=== PATIENT | female | born 1975 | race Caucasian/White ===

== ENCOUNTER 2017-02-16 21:54 | Emergency (ER) | payer OTHER ==
[~2017-02-16] VITALS: Ht 160 cm; Wt 81.6 kg
[~2017-02-16 21:54] MED LIST: ACHD5005 PO; ALPR1T; ALPR1T PO; ALPR2TAB2 PO; ALPR2TAB37 PO; ASPI-480 PO; BACL10TA PO; BIRTH CONTROL PILLS; CARV12.53 PO; CARV6.25; CEPH500C PO; CLIN150C17 PO; CLIN300C11 PO; CLIN300C3 PO; CLON1TAB3 PO; CPR500T; CPR500T PO; CYCL10TA9 PO; ESCT10T PO; ESTR2TAB; GABA300C PO; GABA600T2 PO; HCT25T; HYDR-1231 PO; HYDR-3720 PO; HYDR1TAB PO; HYDR25CA92 GT; HYDR50TA76 PO; HYDROCODONE; IBP200T PO; IBP800T PO; LSNP10T PO; LUNESTA; MAXALT; MORP15TA8 PO; MORP60TA39 PO; NAPR500T PO; ONDA-42 SL; OXYC-197 PO; OXYC-202 PO; PRD10T PO; PRD20T PO; QTP25T PO; QUET100T PO; QUET300T2 PO; QUET50TA PO; SPRN25T; SULF-222 PO; TRAM-21 PO; TRAM50TA2 PO; TRAZ100T92 PO; VILA20TA PO; [UNRECOGNIZED DRUG - CODE] PO; [UNRECOGNIZED DRUG - OTHER]
--- NOTE | 2017-02-16 22:44 | ED Cough/URI ---
General Chief Complaint: Cough/Cold/Flu Symptoms Stated Complaint: COUGH/SORE THROAT Nursing Triage Note: PERSISTANT COUGH X4DAYS Source: patient Exam Limitations: no limitations History of Present Illness Time seen by provider: 22:43 Allergies and Home Medications Allergies Coded Allergies: prochlorperazine (Unverified Allergy, Mild, RASH, 08/07/06) codeine (Unverified Allergy, Unknown, PATIENT HAS RECEIVED MORPHINE & HYDROCODONE, 06/02/15) propoxyphene (Unverified Adverse Reaction, Mild, NAUSEA, 01/25/08) Home Medications Gabapentin 600 Mg Tablet, 600 MG PO TID, (Reported) Hydroxyzine HCl 50 Mg Tablet, 50 MG PO TID PRN for ANXIETY, (Reported) LAST FILLED #90 04-12-15 Naproxen 500 Mg Tablet, 500 MG PO BID PRN for PAIN, #30 Ref 0 Prescribed by: DAVID PRADAHN on 11/25/15 1427 Quetiapine Fumarate 300 Mg Tablet, 300 MG PO HS, (Reported) HAS NOT STARTED YET Trazodone HCl 100 Mg Tablet, 50-100 MG PO HS, (Reported) Past Ubspaga-Sjdyvx-Gvwirm Hx Patient Social History Alcohol Use: Denies Use 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) Smoking Status: Current Everyday Smoker Type Used: Cigarettes 2nd Hand Smoke Exposure: Yes Recent Foreign Travel: No Contact w/Someone Who Travel: No Recent Infectious Disease Expo: No Recent Hopitalizations: No Immunizations Up To Date Tetanus Booster (TDap): Less than 5yrs Seasonal Allergies Seasonal Allergies: No Surgeries HX Surgeries: Yes (D&C, Bartholin gland cyst marsubialization, ERCP,carpel tunnel, ankle surg) Surgeries: Section, Hysterectomy, Orthopedic, 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 Respiratory Hx Respiratory Disorders: Yes Respiratory Disorders: Chronic Bronchitis Cardiovascular Hx Cardiac Disorders: Yes (tachycardia) Cardiac Disorders: Hypertension, Syncope Neurological Hx Neurological Disorders: Yes Neurological Disorders: Headaches /Migraines, Neuropathy Reproductive System : No Hx Reproductive Disorders: No Sexually Transmitted Disease: No Female Reproductive Disorders: Polycystic Ovarian Dis 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, 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 Genitourinary Hx Genitourinary Disorders: No Gastrointestinal Hx Gastrointestinal Disorders: Yes (fatty liver dz) Gastrointestinal Disorders: Liver Disease/Jaundice Musculoskeletal Hx Musculoskeletal Disorders: Yes Musculoskeletal Disorders: Chronic Back Pain Endocrine Hx Endocrine Disorders: Yes (not on meds for hypothyroid) Endocrine Disorders: Hypothyroidsim HEENT HX ENT Disorders: No Loss of Vision: Denies Hearing Impairment: Denies Cancer Hx Cancer: No Psychosocial Hx Psychiatric Problems: Yes Behavioral Health Disorders: Anxiety, Depression Integumentary HX Skin/Integumentary Disorder: No Blood Transfusions Hx Blood Disorders: No Family Medical History Significant Family History: Heart Disease, Cancer, Diabetes Physical Exam Vital Signs Vital Sign - Last 12Hours 02/16/17 22:20 Temp 97.5 Pulse 97 Resp 18 B/P (MAP) 126/97 Pulse Ox 99 O2 Delivery Room Air Capillary Refill : Less Than 3 Seconds Progress/Results/Core Measures Results/Orders My Orders Orders - DAVID PRADHAN Ketorolac Injection (Toradol Injection) (02/16/17 22:53) Benzonatate Capsule (Tessalon Perles) (02/16/17 23:00) Cephalexin Capsule (Keflex Capsule) (02/16/17 23:00) Vital Signs/I&O Vital Sign - Last 12Hours 02/16/17 02/16/17 22:20 22:20 Temp 97.5 Pulse 97 Resp 18 B/P (MAP) 126/97 Pulse Ox 99 O2 Delivery Room Air Room Air Blood Pressure Mean: 107 Departure Impression Impression: Primary Impression: Bronchitis Disposition: 01 HOME, SELF-CARE Condition: Improved Departure-Patient Inst. Decision time for Depature: 22:56 Referrals: [facility] (PCP/Family) Primary Care Physician Patient Instructions: Acute Bronchitis, Adult (DC) Add. Discharge Instructions: All discharge instructions reviewed with patient and/or family. Voiced understanding. Medications as instructed. Tylenol Extra Strength over-the- counter as directed for pain or fever. Cool humidifier. Afrin nasal spray and saline nasal spray [id number] as needed for nasal congestion. Mucinex [id number] as needed. Follow-up with your family practitioner for recheck if needed. Return to the emergency department for worsened symptoms or any other concerns. Scripts Benzonatate (Tessalon Perle) 100 Mg Capsule 1-2 CAP PO Q8H Y for COUGH, #30 CAP 1 Refill Prov: DAVID PRADHAN 02/16/17 Promethazine HCl (Promethazine Tablet) 25 Mg Tablet 25 MG PO Q6H Y for NAUSEA/VOMITING, #10 TAB 0 Refills Prov: DAVID PRADHAN 02/16/17 Prednisone (Prednisone) 20 Mg Tab 40 MG PO DAILY, #10 TAB 0 Refills Prov: DAVID PRADHAN 02/16/17 Albuterol Sulfate (Albuterol Sulfate) 2.5 Mg/3 Ml Vial.neb 2.5 MG IH Q4H Y for SHORTNESS OF BREATH, #28 EA 0 Refills Prov: DAVID PRADHAN 02/16/17 Cephalexin (Cephalexin) 500 Mg Capsule 500 MG PO TID, #21 CAP 0 Refills Prov: DAVID PRADHAN 02/16/17 DAVID PRADHAN February 16, 2017 22:44
[2017-02-16] MEDS ORDERED: KETOROLAC 60 MG/2 ML VIAL IM STA (22:53)
[2017-02-16] MEDS ORDERED: BENZONATATE 100 MG (TESSALON) CAPSULE PO ONE (23:00)
[2017-02-16] MEDS ORDERED: CEPHALEXIN 250 MG (KEFLEX) CAP PO ONE (23:00)
[2017-02-16] MEDS ORDERED: PRD20T PO (23:01)
[2017-02-16] MEDS ORDERED: CEPH500C PO (23:01)
[2017-02-16] MEDS ORDERED: PROM25TA14 PO (23:01)
[2017-02-16] MEDS ORDERED: BENZ-13 PO (23:01)
[2017-02-16] MEDS ORDERED: ALBU2.5V4 IH (23:01)
[2017-02-16 23:09] VITALS: BP 126/97
== END 2017-02-16 23:09 | disposition home or self-care (01) ==
LOC: EDUNIT# 21:54 → ER 21:56
DX: J40 Bronchitis, not specified as acute or chronic (principal); I10 Essential (primary) hypertension; F17.210 Nicotine dependence, cigarettes, uncomplicated
CPT/HCPCS: 99282

== ENCOUNTER 2017-04-14 01:21 | Emergency (ER) | payer SELFPAY ==
[~2017-04-14] VITALS: Ht 160 cm; Wt 75.3 kg
[~2017-04-14 01:21] MED LIST changes: +ALBU2.5V4 IH; +BENZ-13 PO; +PROM25TA14 PO
--- NOTE | 2017-04-14 03:45 | ED Integumentary General ---
General Chief Complaint: Allergic Reaction Stated Complaint: POSS ALLERGIC RXN Source: patient Exam Limitations: no limitations History of Present Illness Time seen by provider: 03:36 Initial Comments Patient presents to ER by private conveyance with chief complaint of itching rash that has progressively worsened over the last several days. She is recently started new meds to include metoprolol and Haldol. She is been driving her around since he has seizure disorder and she's noticed that the rash is worse on her left forearm and neck than the right. She has been using Desitin as well as alcohol on the skin and taking Benadryl for the itching. She has also tried some osyk-hui-ehcscii hydrocortisone cream. She is not having any known exposures to new soaps detergents poison luis angel, new metals or other irritants. She does not have any shortness of breath or stridor. Allergies and Home Medications Allergies Coded Allergies: prochlorperazine (Unverified Allergy, Mild, RASH, 08/07/06) codeine (Unverified Allergy, Unknown, PATIENT HAS RECEIVED MORPHINE & HYDROCODONE, 06/02/15) propoxyphene (Unverified Adverse Reaction, Mild, NAUSEA, 01/25/08) Home Medications Albuterol Sulfate 2.5 Mg/3 Ml Vial.neb, 2.5 MG IH Q4H PRN for SHORTNESS OF BREATH, #28 Ref 0 Prescribed by: DAVID PRADHAN on 02/16/172300 Benzonatate 100 Mg Capsule, 1-2 CAP PO Q8H PRN for COUGH, #30 Ref 1 Prescribed by: DAVID PRADHAN on 02/16/172300 Cephalexin 500 Mg Capsule, 500 MG PO TID, #21 Ref 0 Prescribed by: DAVID PRADHAN on 02/16/172300 Gabapentin 600 Mg Tablet, 600 MG PO TID, (Reported) Hydroxyzine HCl 50 Mg Tablet, 50 MG PO TID PRN for ANXIETY, (Reported) LAST FILLED #90 04-12-15 Naproxen 500 Mg Tablet, 500 MG PO BID PRN for PAIN, #30 Ref 0 Prescribed by: DAVID PRADHAN on 11/25/15 1427 Prednisone 20 Mg Tab, 40 MG PO DAILY, #10 Ref 0 Prescribed by: DAVID PRADHAN on 02/16/172300 Promethazine HCl 25 Mg Tablet, 25 MG PO Q6H PRN for NAUSEA/VOMITING, #10 Ref 0 Prescribed by: DAVID PRADHAN on 02/16/17 2301 Quetiapine Fumarate 300 Mg Tablet, 300 MG PO HS, (Reported) HAS NOT STARTED YET Trazodone HCl 100 Mg Tablet, 50-100 MG PO HS, (Reported) Constitutional: No chills, No fever Respiratory: No cough, No short of breath Cardiovascular: No chest pain, No palpitations Gastrointestinal: No diarrhea, No nausea, No vomiting Genitourinary: No discharge, No dysuria Skin: see HPI, pruritus, rash Past Npqqdla-Yeewyx-Oiegrf Hx Patient Social History Alcohol Use: Denies Use Recreational Drug Use: No (LOTS OF PAIN MEDICATION USAGE) Type Used: Cigarettes 2nd Hand Smoke Exposure: Yes Recent Foreign Travel: No Contact w/Someone Who Travel: No Recent Infectious Disease Expo: No Recent Hopitalizations: No Immunizations Up To Date Tetanus Booster (TDap): Less than 5yrs Seasonal Allergies Seasonal Allergies: No Surgeries HX Surgeries: Yes (D&C, Bartholin gland cyst marsubialization, ERCP,carpel tunnel, ankle surg) Surgeries: Section, Hysterectomy, Orthopedic, 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 Respiratory Hx Respiratory Disorders: Yes Respiratory Disorders: Chronic Bronchitis Cardiovascular Hx Cardiac Disorders: Yes (tachycardia) Cardiac Disorders: Hypertension, Syncope Neurological Hx Neurological Disorders: Yes Neurological Disorders: Headaches /Migraines, Neuropathy Reproductive System Hx Reproductive Disorders: No Sexually Transmitted Disease: No Female Reproductive Disorders: Polycystic Ovarian Dis 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, 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 Genitourinary Hx Genitourinary Disorders: No Gastrointestinal Hx Gastrointestinal Disorders: Yes (fatty liver dz) Gastrointestinal Disorders: Liver Disease/Jaundice Musculoskeletal Hx Musculoskeletal Disorders: Yes Musculoskeletal Disorders: Chronic Back Pain Endocrine Hx Endocrine Disorders: Yes (not on meds for hypothyroid) Endocrine Disorders: Hypothyroidsim HEENT HX ENT Disorders: No Loss of Vision: Denies Hearing Impairment: Denies Cancer Hx Cancer: No Psychosocial Hx Psychiatric Problems: Yes Behavioral Health Disorders: Anxiety, Depression Integumentary HX Skin/Integumentary Disorder: No Blood Transfusions Hx Blood Disorders: No Family Medical History Significant Family History: Heart Disease, Cancer, Diabetes Physical Exam Vital Signs Vital Sign - Last 12Hours 04/14/17 02:13 Temp 97.7 Pulse 95 Resp 22 Pulse Ox 98 O2 Delivery Room Air Capillary Refill : Less Than 3 Seconds General Appearance: WD/WN, no apparent distress HEENT: PERRL/EOMI, pharynx normal Cardiovascular: normal peripheral pulses, no edema Respiratory: lungs clear, normal breath sounds Neurologic/Psychiatric: alert, oriented x 3 Skin: other (erythematous papular without bullae with excoriations especially concentrated on the sun exposed dorsum of the left forearm and humerus. Scant on the neck and little on the right side as well.) Progress/Results/Core Measures Results/Orders Vital Signs/I&O Vital Sign - Last 12Hours 04/14/17 02:13 Temp 97.7 Pulse 95 Resp 22 B/P (MAP) Pulse Ox 98 O2 Delivery Room Air Departure Impression Impression: Primary Impression: Contact dermatitis Qualified Codes: L25.9 - Unspecified contact dermatitis, unspecified cause Disposition: HOME, SELF-CARE Condition: Stable Departure-Patient Inst. Decision time for Depature: 03:39 Referrals: [facility] (PCP/Family) Primary Care Physician Patient Instructions: Skin Rash (DC) Add. Discharge Instructions: Discontinue the use of alcohol and Desitin. In the morning apply the triamcinolone cream to affected areas except for your face, nipples or genitalia. Twice a day you should apply moisturizer such as or cocoa butter overall of your skin is affected. You can also use calamine lotion and Benadryl as needed to control the itching. I suggest you take a daily Zyrtec or Claritin for the itching as well. If you're not seeing some improvement in 7-10 days you should follow up with your primary care physician. All discharge instructions reviewed with patient and/or family. Voiced understanding. Scripts Triamcinolone Acet (Triamcinolone Acetonide 0.1% Cream) 15 Gm Cr 15 GM TP DAILY for 14 Days, #1 TUBE 0 Refills Prov: WU BALLESTEROS 04/14/17 Copy Copies To 1: NORAH AJIME DO WU BALLESTEROS Apr 14, 2017 03:45
[2017-04-14] MEDS ORDERED: TR1C15 TP (03:46)
[2017-04-14 03:52] VITALS: BP 0/0
== END 2017-04-14 03:52 | disposition home or self-care (01) ==
LOC: EDUNIT# 01:21 → ER 01:23
DX: L25.9 Unspecified contact dermatitis, unspecified cause (principal); J42 Unspecified chronic bronchitis; I10 Essential (primary) hypertension; G43.909 Migraine, unspecified, not intractable, without status migrainosus; G40.909 Epilepsy, unspecified, not intractable, without status epilepticus; F41.9 Anxiety disorder, unspecified; F32.9 Major depressive disorder, single episode, unspecified; E03.9 Hypothyroidism, unspecified; Z77.22 Contact with and (suspected) exposure to environmental tobacco smoke (acute) (chronic); Z90.710 Acquired absence of both cervix and uterus; Z98.51 Tubal ligation status
CPT/HCPCS: 99282

== ENCOUNTER → 2017-12-18 | Outpatient (CLI) | payer SELFPAY ==
[~2017-12-18] MED LIST changes: +NAPR-1071 PO; -NAPR500T PO; +TR1C15 TP
--- NOTE | 2017-12-18 12:27 | Diagnostic Imaging Report ---
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 Patient states chronic back pain with bilateral leg pain and numbness to feet. EXAMINATION: MRI of the lumbar spine performed without IV contrast. Sequences include sagittal T2, sagittal T1, sagittal T2 fat-sat, and axial T2. COMPARISON: MRI of the lumbar spine without IV contrast dated 10/30/2014. MRI of the lumbar spine dated 03/22/2014. FINDINGS: There is interval development of moderate left hydroureteronephrosis. There is a fluid fluid level filled cystic structure in the midportion of the right kidney which is not completely imaged on the prior study and measures 1.8 cm in greatest dimension. Patient was noted to have a fluid fluid filled cystic structure on the prior MRI dated 03/22/2014. Limited visualization of the distal thoracic spinal cord, conus medullaris, and cauda equina nerve roots is unremarkable. Conus medullaris tip is seen at the L1-L2 intervertebral level. There is no evidence of acute lumbar spine fracture. There is interval development of a mild chronic compression deformity of the upper L2 vertebral body with increased Schmorl's node. There is no retropulsed fragment seen. The lumbar vertebra have normal T1-T2 signal. There is no significant paraspinal soft tissue abnormality. T12-L1: Stable subtle posterior disc bulge. There is no significant central spinal canal or neural foramen narrowing. L1-L2: There is progression of a diffuse disc bulge with mild loss of intervertebral disc height. There is mild central canal narrowing which has progressed. There is no significant neural foramen narrowing. L2-L3: There is slight increased size of the anterior spurs. There is no significant posterior disc bulge. There is no significant central spinal canal or neural foramen narrowing. L3-L4: There is slight progression of anterior spurs. There is no significant posterior disc bulge. There is no significant central spinal canal or neural foramen narrowing. L4-L5: There is no significant posterior disc bulge. Stable small anterior spurs. There is no significant central spinal canal or neural foramen narrowing. There is mild facet arthropathy. L5-S1: Stable small posterior disc protrusion/herniation with annular tear posteriorly. There is no significant central canal narrowing. There is stable mild bilateral neural foramen narrowing. IMPRESSION: 1: Interval development of a mild chronic compression deformity of the L2 vertebral body. There is no evidence of acute lumbar spine fracture or dislocation. 2: There is development of an L1-L2 diffuse disc bulge with mild central canal narrowing which is new. 3: There is slight progression of lumbar spine degenerative spurs anteriorly. Otherwise, the remainder of the disc disease is stable. 4: There is interval development of moderate left hydroureteronephrosis. CT scan of the abdomen and pelvis with and without contrast is suggested for further evaluation for etiology. Dictated by: Dictated on workstation # [id number]
== END ==
LOC: RAD 10:47
PROVIDERS: ATTEND Nurse Practitioner Family
DX: M48.061 Spinal stenosis, lumbar region without neurogenic claudication (principal); M51.26 Other intervertebral disc displacement, lumbar region; M43.8X6 Other specified deforming dorsopathies, lumbar region; N13.30 Unspecified hydronephrosis
CPT/HCPCS: 72148

== ENCOUNTER 2018-02-26 17:41 | Emergency (ER) | payer SELFPAY ==
[~2018-02-26 17:41] MED LIST changes: +HYDR-757 PO; +SULF1TAB35 PO; +TAMS0.4C98 PO
--- OUTSIDE RECORDS SUMMARY | 2018-02-26 17:46 | XMS REPORT | Clinical Summary ---
Author Author [facility] Address Unknown Phone Unavailable Care Team Providers Care Anaesthetic Technician Name Role Phone PP Unavailable Allergies Active Allergy Reactions Severity Noted Date Comments Codeine Hives 03/06/2011 Compazine Itching 03/06/2011 Propoxyphene Nausea And Vomiting 03/06/2011 N-Acetaminophen Current Medications Prescription Sig. Disp. Refills Start End Date Status Date carvedilol (COREG) 12.5 Take 12.5 mg by mouth 2 Active MG tabletIndications: (two) times daily with Hypertension meals. Indications: High Blood Pressure quetiapine (SEROQUEL XR) Take 3 tablets by mouth 90 tablet 0 03/09/20 Active 50 MG TB24 Daily At 1700. 11 Active Problems Problem Noted Date Suicide attempt (HCC) 03/07/2011 Mood disorder (HCC) 03/07/2011 Hypertension 03/07/2011 Tachycardia 03/07/2011 Migraines 03/07/2011 Chronic low back pain 03/07/2011 Anxiety disorder 03/07/2011 Family History Medical History Relation Name Comments Heart disease Father Hypertension Father Heart disease Maternal Grandfather Cancer Maternal Grandmother Diabetes Maternal Grandmother Heart disease Maternal Grandmother Cancer Mother Heart disease Mother Hypertension Mother Heart disease Paternal Grandfather Heart disease Paternal Grandmother Relation Name Status Comments Father Maternal Grandfather Maternal Grandmother Mother Paternal Grandfather Paternal Grandmother Social History Tobacco Use Types Packs/Day Years Used Date Current Every Day Smoker 1 7 Comments: pt has tried a nicotene patch Alcohol Use Drinks/Week oz/Week Comments No Sex Assigned at Date Recorded Not on file Last Filed Vital Signs Vital Sign Reading Time Taken Blood Pressure 114/73 03/09/2011 9:00 AM CDT Pulse 78 03/09/2011 9:00 AM CDT Temperature 36.8 C (98.2 F) 03/09/2011 9:00 AM CDT Respiratory Rate 16 03/09/2011 9:00 AM CDT Oxygen Saturation - - Inhaled Oxygen - - Concentration Weight 89.8 kg (198 lb) 03/06/2011 8:25 PM CDT Height 160 cm (5' 3") 03/06/2011 8:25 PM CDT Body Mass Index 35.07 03/06/2011 8:25 PM CDT Plan of Treatment Health Maintenance Due Date Last Done Comments Varicella Vaccines (1 of 1987 2 - 2 Dose Adolescent Series) DTaP,Tdap,and Td Vaccines 1993 (1 - Tdap) CERVICAL CANCER SCREENING 1995 Influenza Vaccine (Season 05/22/2018 Ended) Results Not on filefrom Last 3 Months
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
[2018-02-26] MEDS ORDERED: LISI10TA2 PO (20:10)
[2018-02-26] MEDS ORDERED: SUMA100T3 PO (20:10)
[2018-02-26] MEDS ORDERED: CARV6.252 PO (20:10)
[2018-02-26] MEDS ORDERED: CLON0.1T PO (20:10)
[2018-02-26] MEDS ORDERED: HYDR-757 PO (22:30)
[2018-02-26] MEDS ORDERED: SULF1TAB35 PO (22:30)
== END 2018-02-26 17:55 | disposition left against medical advice (07) ==
LOC: EDUNIT# 17:41 → ER 17:42
DX: N20.0 Calculus of kidney (principal)

== ENCOUNTER 2018-02-26 18:24 | Emergency (ER) | payer SELFPAY ==
[~2018-02-26] VITALS: Ht 160 cm; Wt 82.6 kg
--- OUTSIDE RECORDS SUMMARY | 2018-02-26 18:29 | XMS REPORT | Clinical Summary ---
Author Author [facility] Address Unknown Phone Unavailable Care Team Providers Care [employer] Practitioner Name Role Phone PP Unavailable Allergies Active [...]
[2018-02-26] MEDS ORDERED: SUMA100T3 PO (20:10)
[2018-02-26] MEDS ORDERED: CLON0.1T PO (20:10)
[2018-02-26] MEDS ORDERED: LISI10TA2 PO (20:10)
[2018-02-26] MEDS ORDERED: CARV6.252 PO (20:10)
[2018-02-26] MEDS ORDERED: KETOROLAC 30 MG/ML VIAL IVP ONE (21:00)
--- NOTE | 2018-02-26 21:26 | ED GU-Female ---
General Chief Complaint: Abdominal/GI Problems Stated Complaint: KIDNEY STONES Nursing Triage Note: pt reports having history kidney stone approx one month ago, that was potentially too large to pass. pt reports pain and tenderness in left lower pelvic region, also reports having decreased urine output. pt states the pain is very uncomfortable and not tolerable any longer, unable to sleep Nursing Sepsis Screen: No Definite Risk Source: patient Exam Limitations: no limitations History of Present Illness Date Seen by Provider: Feb 26, 2018 Time Seen by Provider: 21:22 Initial Comments to ER with reports of a suprapubic and left lower quadrant abdominal pain. history of kidney stones. She was seen here a month ago for the same. Unable follow-up. Timing/Duration: just prior to arrival Severity/Quality: moderate Radiation: none Activities at Onset: none Prior Genitourinary Problems: none Associated Symptoms: dysuria Allergies and Home Medications Allergies Coded Allergies: prochlorperazine (Unverified Allergy, Mild, RASH, 08/07/06) codeine (Unverified Allergy, Unknown, PATIENT HAS RECEIVED MORPHINE & HYDROCODONE, 06/02/15) propoxyphene (Unverified Adverse Reaction, Mild, NAUSEA, 01/25/08) Home Medications Albuterol Sulfate 2.5 Mg/3 Ml Vial.neb, 2.5 MG IH Q4H PRN for SHORTNESS OF BREATH Prescribed by: DAVID PRADHAN on 02/16/17 2301 Carvedilol 6.25 Mg Tablet, 12.5 MG PO BID, (Reported) Clonidine HCl 0.1 Mg Tablet, 0.1 MG PO DAILY, (Reported) Hydrocodone/Acetaminophen 1 Each Tablet, 1 EACH PO Q4H PRN for PAIN-MODERATE TO SEVERE do not fill unless Bactrim and Flomax is also filled. Prescribed by: SANDRO JEFFRIES on 01/30/18 1432 Lisinopril 10 Mg Tablet, 10 MG PO DAILY, (Reported) Quetiapine Fumarate 300 Mg Tablet, 300 MG PO HS, (Reported) HAS NOT STARTED YET Sumatriptan Succinate 100 Mg Tablet, 100 MG PO PRN, (Reported) Triamcinolone Acet 15 Gm Cr, 15 GM TP DAILY Prescribed by: WU BALLESTEROS on 04/14/17 0346 Patient Home Medication List Home Medication List Reviewed: Yes (what) Review of Systems Constitutional: see HPI EENTM: see HPI Respiratory: no symptoms reported Cardiovascular: no symptoms reported Genitourinary: no symptoms reported Musculoskeletal: see HPI Skin: no symptoms reported Psychiatric/Neurological: No Symptoms Reported Past [id number] Hx Patient Social History Drug of Choice: Prescription narcotics Type Used: Cigarettes 2nd Hand Smoke Exposure: Yes Recent Foreign Travel: No Contact w/Someone Who Travel: No Recent Infectious Disease Expo: No Recent Hopitalizations: No Immunizations Up To Date Tetanus Booster (TDap): Less than 5yrs Seasonal Allergies Seasonal Allergies: No Past Medical History Surgeries: Yes Section, Hysterectomy, Orthopedic, 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 Respiratory: Yes Chronic Bronchitis Currently Using CPAP: No Currently Using BIPAP: No Cardiac: Yes (tachycardia) Hypertension, Syncope Neurological: Yes Headaches /Migraines, Neuropathy : No Reproductive Disorders: No Female Reproductive Disorders: Polycystic 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, 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 Sexually Transmitted Disease: No Genitourinary: No Gastrointestinal: Yes (fatty liver dz) Liver Disease/Jaundice Musculoskeletal: Yes Chronic Back Pain Endocrine: Yes Hypothyroidsim HEENT: No Loss of Vision: Denies Hearing Impairment: Denies Cancer: No Psychosocial: Yes Anxiety, Depression Integumentary: No Blood Disorders: No Family Medical History Heart Disease, Cancer, Diabetes Physical Exam Vital Signs Vital Signs - First Documented 02/26/18 20:01 Pulse 116 Resp 18 B/P (MAP) 123/79 (94) Pulse Ox 97 O2 Delivery Room Air Capillary Refill : Less Than 3 Seconds General Appearance: WD/WN, no apparent distress HEENT: PERRL/EOMI, normal ENT inspection Neck: non-tender, full range of motion Respiratory: no respiratory distress, no accessory muscle use Gastrointestinal: normal bowel sounds, non tender Extremities: normal range of motion, non-tender Neurologic/Psychiatric: alert, normal mood/affect Skin: normal color, warm/dry Progress/Results/Core Measures Suspected Sepsis Recent Fever Within 48 Hours: No Infection Criteria Present: None New/Unexplained Altered Menta: No Sepsis Screen: No Definite Risk SIRS Temperature: Pulse: 116 Respiratory Rate: 18 Laboratory Tests 02/26/18 21:20: White Blood Count 9.4 Blood Pressure 123 /79 Mean: 94 Laboratory Tests 02/26/18 21:20: Creatinine 0.83, Platelet Count 289, Total Bilirubin 0.2 Results/Orders Lab Results Laboratory Tests Test 02/26/18 20:52 02/26/18 21:15 02/26/18 21:20 Range/Units Urine Color YELLOW Urine Clarity CLEAR Urine pH 7 5-9 Urine Specific [place] 1.005 L 1.016-1.022 Urine Protein NEGATIVE NEGATIVE Urine Glucose (UA) NEGATIVE NEGATIVE Urine Ketones NEGATIVE NEGATIVE Urine Nitrite NEGATIVE NEGATIVE Urine Bilirubin NEGATIVE NEGATIVE Urine Urobilinogen NORMAL NORMAL MG/DL Urine Leukocyte Esterase 1+ H NEGATIVE Urine RBC (Auto) 1+ H NEGATIVE Urine RBC 0-2 /HPF Urine WBC 0-2 /HPF Urine Squamous Epithelial Cells 2-5 /HPF Urine Crystals NONE /LPF Urine Bacteria NONE /HPF Urine Casts NONE /LPF Urine Mucus NEGATIVE /LPF Urine Culture Indicated NO Urine Opiates Screen POSITIVE H NEGATIVE Urine Oxycodone Screen NEGATIVE NEGATIVE Urine Methadone Screen NEGATIVE NEGATIVE Urine Propoxyphene Screen NEGATIVE NEGATIVE Urine Barbiturates Screen NEGATIVE NEGATIVE Ur Tricyclic Antidepressants Screen POSITIVE H NEGATIVE Urine Phencyclidine Screen NEGATIVE NEGATIVE Urine Amphetamines Screen NEGATIVE NEGATIVE Urine Methamphetamines Screen NEGATIVE NEGATIVE Urine Benzodiazepines Screen NEGATIVE NEGATIVE Urine Cocaine Screen NEGATIVE NEGATIVE Urine Cannabinoids Screen NEGATIVE NEGATIVE White Blood Count 9.4 4.3-11.0 10^3/uL Red Blood Count 4.43 4.35-5.85 10^6/uL Hemoglobin 14.1 11.5-16.0 G/DL Hematocrit 41 35-52 % Mean Corpuscular Volume 92 80-99 FL Mean Corpuscular Hemoglobin 32 25-34 PG Mean Corpuscular Hemoglobin Concent 35 32-36 G/DL Red Cell Distribution Width 14.2 10.0-14.5 % Platelet Count 289 130-400 10^3/uL Mean Platelet Volume 9.8 7.4-10.4 FL Neutrophils (%) (Auto) 56 42-75 % Lymphocytes (%) (Auto) 36 12-44 % Monocytes (%) (Auto) 5 0-12 % Eosinophils (%) (Auto) 3 0-10 % Basophils (%) (Auto) 1 0-10 % Neutrophils # (Auto) 5.2 1.8-7.8 X 10^3 Lymphocytes # (Auto) 3.3 1.0-4.0 X 10^3 Monocytes # (Auto) 0.5 0.0-1.0 X 10^3 Eosinophils # (Auto) 0.3 0.0-0.3 10^3/uL Basophils # (Auto) 0.1 0.0-0.1 10^3/uL Sodium Level 142 135-145 MMOL/L Potassium Level 3.5 L 3.6-5.0 MMOL/L Chloride Level 107 98-107 MMOL/L Carbon Dioxide Level 22 21-32 MMOL/L Anion Gap 13 5-14 MMOL/L Blood Urea Nitrogen 7 7-18 MG/DL Creatinine 0.83 0.60-1.30 MG/DL Estimat Glomerular Filtration Rate > 60 BUN/Creatinine Ratio 8 Glucose Level 106 H 70-105 MG/DL Calcium Level 9.2 8.5-10.1 MG/DL Total Bilirubin 0.2 0.1-1.0 MG/DL Aspartate Amino Transf (AST/SGOT) 20 5-34 U/L Alanine Aminotransferase (ALT/SGPT) 59 H 0-55 U/L Alkaline Phosphatase 270 H 40-136 U/L Total Protein 7.0 6.4-8.2 GM/DL Albumin 4.1 3.2-4.5 GM/DL My Orders Orders - SANDRO JEFFRIES APRN Cbc With Automated Diff (02/26/18 20:52) Comprehensive Metabolic Panel (02/26/18 20:52) Ua Culture If Indicated (02/26/18 20:52) Drug Screen Stat (Urine) (02/26/18 20:52) Iv Heplock-Insert (Order) (02/26/18 20:52) Ketorolac Injection (Toradol Injection) (02/26/18 21:00) Ct Abd/Pelvis Wo(Kidney Stone) (02/26/18 21:21) Abdomen/Kub 1view (02/26/18 21:21) Medications Given in ED Current Medications Medications Dose Ordered Sig/Pati Route Start Time Stop Time Status Last Admin Dose Admin Ketorolac Tromethamine 30 mg ONCE ONCE IVP 02/26/18 21:00 02/26/18 21:01 DC 02/26/18 21:23 30 MG Vital Signs/I&O 02/26/18 20:01 Pulse 116 Resp 18 B/P (MAP) 123/79 (94) Pulse Ox 97 O2 Delivery Room Air Capillary Refill : Less Than 3 Seconds Blood Pressure Mean: 94 Departure Impression Primary Impression: Left ureteral stone Disposition: HOME, SELF-CARE Condition: Stable Departure-Patient Inst. Decision time for Depature: 22:20 Referrals: OSCAR AYALA APRN (PCP) Primary Care Physician ABRAHAM LERMA MD Patient Instructions: Kidney Stones (DC) Add. Discharge Instructions: 1. Tylenol and Motrin for pain control once he run out of the prescribed pain medications. Call Dr. Lerma on Thursday for an appointment to be seen.All discharge instructions reviewed with patient and/or family. Voiced understanding. Scripts Hydrocodone/Acetaminophen ([place] 5-325 Tablet) 1 Each Tablet 1 EACH PO Q4H PRN for PAIN-MILD TO MODERATE, #10 TAB Prov: SANDRO JEFFRIES APRN 02/26/18 Sulfamethoxazole/Trimethoprim (Bactrim Ds Tablet) 1 Each Tablet 1 EACH PO BID, #10 TAB Prov: SANDRO JEFFRIES APRN 02/26/18 SANDRO JEFFRIES APRN Feb 26, 2018 21:26
[2018-02-26 21:28] LABS: BILIRUBIN,URINE NEGATIVE (NEGATIVE); CLARITY,URINE CLEAR; COLOR,URINE YELLOW; GLUCOSE, URINE (UA) NEGATIVE (NEGATIVE); KETONES,URINE NEGATIVE (NEGATIVE); LEUKOCYTE ESTERASE ,URINE 1+ (NEGATIVE); NITRITE,URINE NEGATIVE (NEGATIVE); PH,URINE 7 (5-9); PROTEIN,URINE NEGATIVE (NEGATIVE); UROBILINOGEN,URINE NORMAL (NORMAL)
[2018-02-26 21:30] LABS: BASOPHILS # (AUTO) 0.1 10^3/uL (0.0-0.1); BASOPHILS % (AUTO) 1 % (0-10); EOSINOPHILS # (AUTO) 0.3 10^3/uL (0.0-0.3); EOSINOPHILS % (AUTO) 3 % (0-10); HEMATOCRIT 41 % (35-52); HEMOGLOBIN 14.1 G/DL (11.5-16.0); LYMPHOCYTES # (AUTO) 3.3 X 10^3 (1.0-4.0); LYMPHOCYTES % (AUTO) 36 % (12-44); MEAN CORPUSCULAR HEMOGLOBIN 32 PG (25-34); MEAN CORPUSCULAR HGB CONC 35 G/DL (32-36); MEAN CORPUSCULAR VOLUME 92 FL (80-99); MEAN PLATELET VOLUME 9.8 FL (7.4-10.4); MONOCYTES # (AUTO) 0.5 X 10^3 (0.0-1.0); MONOCYTES % (AUTO) 5 % (0-12); NEUTROPHILS # (AUTO) 5.2 X 10^3 (1.8-7.8); NEUTROPHILS % (AUTO) 56 % (42-75); PLATELET COUNT 289 10^3/uL (130-400); RED BLOOD COUNT 4.43 10^6/uL (4.35-5.85); RED CELL DISTRIBUTION WIDTH 14.2 % (10.0-14.5); WHITE BLOOD COUNT 9.4 10^3/uL (4.3-11.0)
[2018-02-26 21:38] LABS: RBC,URINE 0-2 /HPF; WBC,URINE 0-2 /HPF
[2018-02-26 21:40] LABS: AMPHETAMINE SCREEN, URINE NEGATIVE (NEGATIVE); BARBITURATE SCREEN URINE NEGATIVE (NEGATIVE); BENZODIAZEPINES SCREEN URINE NEGATIVE (NEGATIVE); CANNABINOID SCREEN, URINE NEGATIVE (NEGATIVE); COCAINE SCREEN URINE NEGATIVE (NEGATIVE); METHADONE STAT NEGATIVE (NEGATIVE); METHAMPHETAMINE SCREEN URINE S NEGATIVE (NEGATIVE); OPIATE SCREEN URINE POSITIVE (NEGATIVE); OXYCODONE STAT NEGATIVE (NEGATIVE); PROPOXYPHENE STAT NEGATIVE (NEGATIVE); TRICYCLIC ANTIDEPRESSANTS SCRE POSITIVE (NEGATIVE)
[2018-02-26 21:53] LABS: ALANINE AMINOTRANSFERASE 59 U/L (0-55); ALBUMIN 4.1 GM/DL (3.2-4.5); ALKALINE PHOSPHATASE 270 U/L (40-136); BILIRUBIN,TOTAL 0.2 MG/DL (0.1-1.0); BUN/CREATININE RATIO 8; CALCIUM 9.2 MG/DL (8.5-10.1); CARBON DIOXIDE 22 MMOL/L (21-32); CHLORIDE 107 MMOL/L (98-107); CREATININE SERUM 0.83 MG/DL (0.60-1.30); GFR ESTIMATED > 60; GLUCOSE 106 MG/DL (70-105); POTASSIUM 3.5 MMOL/L (3.6-5.0); SODIUM 142 MMOL/L (135-145)
--- NOTE | 2018-02-26 22:17 | Diagnostic Imaging Report ---
PROCEDURE: CT urinary tract, rule out kidney stone. TECHNIQUE: Multiple contiguous axial images were obtained through the abdomen and pelvis without the use of intravenous contrast. INDICATION: Left-sided pelvic pain. History of renal stones. CORRELATION STUDY: 01/30/2018. FINDINGS: LOWER THORAX: Minimal wispy-like density at the right middle lobe. Minimal pneumonitis not excluded. LIVER: Unchanged mild hepatomegaly. GALLBLADDER: Absent with clips in the fossa. SPLEEN: Unremarkable. PANCREAS: Unremarkable. ADRENAL GLANDS: Unremarkable. KIDNEYS: Low-density area of posterior right mid kidney favoring a probable cyst. Right renal parenchyma and collecting system unremarkable. Again noted is an approximately 7-8 mm calcification of the proximal left ureter resulting in mild/moderate left-sided obstructive uropathy. Overall location and positioning of the stone appears unchanged. ABDOMINAL AORTA: Minimal wall desiccation, nonaneurysmal. A few very mildly prominent but non-pathologically enlarged intraretroperitoneal lymph nodes. GASTROINTESTINAL TRACT: No obstruction or inflammation. Normal appendix in the right lower quadrant. URINARY BLADDER: Unremarkable. REPRODUCTIVE: Uterus is absent. OSSEOUS STRUCTURES: No acute abnormality. OTHER: None. IMPRESSION: No appreciable change in the position or severity of obstructive uropathy owing to a 7 mm stone in the proximal left ureter. Dictated by: Dictated on workstation # [id number]
--- NOTE | 2018-02-26 22:25 | Diagnostic Imaging Report ---
INDICATION: Left lower pelvic pain.. TECHNIQUE: Single supine view of the abdomen 10:05 PM CORRELATION STUDY: None FINDINGS: The known left proximal ureteral calcification appears to be projecting just below the L4 transverse process. Moderate amount of overlying bowel gas and stool is present. Cholecystectomy clips in the right upper quadrant. IMPRESSION: 1. Known proximal left ureteral calcification appears projects just below the left L4 transverse process. Moderate amount of overlying bowel gas and stool. Dictated by: Dictated on workstation # [id number]
[2018-02-26] MEDS ORDERED: HYDR-757 PO (22:30)
[2018-02-26] MEDS ORDERED: SULF1TAB35 PO (22:30)
[2018-02-26 22:33] VITALS: BP 123/79
[2018-02-26] MEDS ORDERED: RX-HYDROCODONE/APAP 5/325 MG #4 TAB PK PO ONE (22:35)
== END 2018-02-26 22:36 | disposition home or self-care (01) ==
LOC: EDUNIT# 18:24 → ER 18:25
DX: N20.1 Calculus of ureter (principal); I10 Essential (primary) hypertension; G43.909 Migraine, unspecified, not intractable, without status migrainosus; E03.9 Hypothyroidism, unspecified; F41.9 Anxiety disorder, unspecified; F32.9 Major depressive disorder, single episode, unspecified; Z87.19 Personal history of other diseases of the digestive system; Z87.448 Personal history of other diseases of urinary system; Z88.5 Allergy status to narcotic agent; Z82.49 Family history of ischemic heart disease and other diseases of the circulatory system; Z88.8 Allergy status to other drugs, medicaments and biological substances; Z79.51 Long term (current) use of inhaled steroids; Z77.22 Contact with and (suspected) exposure to environmental tobacco smoke (acute) (chronic); Z87.59 Personal history of other complications of pregnancy, childbirth and the puerperium; Z90.710 Acquired absence of both cervix and uterus; Z98.51 Tubal ligation status
CPT/HCPCS: 36415; 74018; 74176; 80053; 80306; 81000; 85025; 96374

== ENCOUNTER 2018-03-11 14:36 | Emergency (ER) | payer SELFPAY ==
[~2018-03-11] VITALS: Ht 160 cm; Wt 80.7 kg
[~2018-03-11 14:36] MED LIST changes: +CARV6.252 PO; +CLON0.1T PO; +LISI10TA2 PO; +SUMA100T3 PO
[2018-03-11] MEDS ORDERED: KETOROLAC 30 MG/ML VIAL IVP ONE (15:00)
--- NOTE | 2018-03-11 15:00 | ED Back Pain ---
General Chief Complaint: Back Problems Stated Complaint: LEFT FLANK PAIN Source of Information: Patient Exam Limitations: No Limitations (WM CORDERO STUDENT) History of Present Illness Date Seen by Provider: Mar 11, 2018 Time Seen by Provider: 14:58 Initial Comments Patient is a 43-year-old female who presents to the emergency room with complaints of low back pain, nausea, vomiting, diarrhea. She reports she's been having this pain for one and half months and that she has had 2 CT scans of both revealed a stone stuck in her ureter. She has tried to call Dr. Lerma but they require a $500 co-pay before they will see her physicians been unable to follow-up. She also states that she is seen [facility] and they've been trying via her set up at different facilities she has not heard any thing back. She reports that she ran out of her hydrocodone yesterday the pain has become too unbearable. She is currently on Bactrim for for prophylaxis and she has been on this for a month. Timing/Duration: Other (1-1/2 months) Severity: Moderate Pain/Injury Location: Abdomen, Back Modifying Factors: Improves With Pain Medication (WM CORDERO STUDENT) Timing/Duration: Other (1-1/2 months) Pain/Injury Location: Back, Other (left suprapubic) Associated Symptoms: No fever, No loss of bladder control (MERRICK DUEÑAS MD) Allergies and Home Medications Allergies Coded Allergies: prochlorperazine (Unverified Allergy, Mild, RASH, 08/07/06) codeine (Unverified Allergy, Unknown, PATIENT HAS RECEIVED MORPHINE & HYDROCODONE, 06/02/15) propoxyphene (Unverified Adverse Reaction, Mild, NAUSEA, 01/25/08) Home Medications Albuterol Sulfate 2.5 Mg/3 Ml Vial.neb, 2.5 MG IH Q4H PRN for SHORTNESS OF BREATH Prescribed by: DAVID PRADHAN on 02/16/17 5351 Carvedilol 6.25 Mg Tablet, 12.5 MG PO BID, (Reported) Clonidine HCl 0.1 Mg Tablet, 0.1 MG PO DAILY, (Reported) Hydrocodone/Acetaminophen 1 Each Tablet, 1 EACH PO Q4H PRN for PAIN-MODERATE TO SEVERE do not fill unless Bactrim and Flomax is also filled. Prescribed by: SANDRO JEFFRIES on 01/30/18 1432 Hydrocodone/Acetaminophen 1 Each Tablet, 1 EACH PO Q4H PRN for PAIN-MILD TO MODERATE Prescribed by: SANDRO JEFFRIES on 02/26/182229 Lisinopril 10 Mg Tablet, 10 MG PO DAILY, (Reported) Quetiapine Fumarate 300 Mg Tablet, 300 MG PO HS, (Reported) HAS NOT STARTED YET Sulfamethoxazole/Trimethoprim 1 Each Tablet, 1 EACH PO BID Prescribed by: SANDRO JEFFRIES on 02/26/182229 Sumatriptan Succinate 100 Mg Tablet, 100 MG PO PRN, (Reported) Triamcinolone Acet 15 Gm Cr, 15 GM TP DAILY Prescribed by: WU BALLESTEROS on 04/14/17 0346 Patient Home Medication List Home Medication List Reviewed: Yes (WM CORDERO) Constitutional: see HPI EENTM: no symptoms reported Respiratory: No cough, No short of breath, No wheezing Cardiovascular: No chest pain, No edema, No Hx of Intervention Gastrointestinal: see HPI, abdominal pain (RLQ LLQ), diarrhea, nausea, vomiting Genitourinary: see HPI, dysuria, frequency, hematuria, pain Musculoskeletal: back pain; No muscle pain, No muscle stiffness, No muscle cramps Skin: no symptoms reported Psychiatric/Neurological: No Symptoms Reported (WM CORDERO) Constitutional: see HPI; No chills, No fever Genitourinary: hematuria, pain (MERRICK DUEÑAS MD) All Other Systems Reviewed Negative Unless Noted: Yes (WM CORDERO) Negative Unless Noted: Yes (MERRICK DUEÑAS MD) Past Awxbuqn-Iqmvcc-Clgcgk Hx Past Med/Social Hx: Reviewed Nursing Past Med/Soc Hx (WM CORDERO) Past Med/Social Hx: Reviewed Nursing Past Med/Soc Hx (MERRICK DUEÑAS MD) Patient Social History Drug of Choice: Prescription narcotics Type Used: Cigarettes 2nd Hand Smoke Exposure: Yes Recent Foreign Travel: No Contact w/Someone Who Travel: No Recent Hopitalizations: No (WM CORDERO) Immunizations Up To Date Tetanus Booster (TDap): Less than 5yrs (WM CORDERO) Seasonal Allergies Seasonal Allergies: No (WM CORDERO) Past Medical History Surgeries: Yes Section, Hysterectomy, Orthopedic, 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 Respiratory: Yes Chronic Bronchitis Currently Using CPAP: No Currently Using BIPAP: No Cardiac: Yes (tachycardia) Hypertension, Syncope Neurological: Yes Headaches /Migraines, Neuropathy Reproductive Disorders: No Female Reproductive Disorders: Polycystic 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, 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 Sexually Transmitted Disease: No Genitourinary: No Gastrointestinal: Yes (fatty liver dz) Liver Disease/Jaundice Musculoskeletal: Yes Chronic Back Pain Endocrine: Yes Hypothyroidsim HEENT: No Loss of Vision: Denies Hearing Impairment: Denies Cancer: No Psychosocial: Yes Anxiety, Depression Integumentary: No Blood Disorders: No (WM CORDERO STUDENT) Family Medical History Reviewed Nursing Family Hx (WM CORDERO STUDENT) Reviewed Nursing Family Hx (MERRICK DUEÑAS MD) Heart Disease, Cancer, Diabetes (WM CORDERO STUDENT) Physical Exam Vital Signs Vital Signs - First Documented 03/11/18 14:56 Temp 97.2 Pulse 116 Resp 20 B/P (MAP) 170/96 (120) Pulse Ox 96 (MERRICK DUEÑAS MD) Vital Signs Capillary Refill : (WM CORDERO STUDENT) General Appearance: No Apparent Distress, WD/WN HEENT: TMs Normal, Normal ENT Inspection, Pharynx Normal Neck: Full Range of Motion, Normal Inspection, Non Tender Cardiovascular: Regular Rate, Rhythm, No Edema, No Gallop Respiratory: Lungs Clear, Normal Breath Sounds Gastrointestinal: Normal Bowel Sounds, No Organomegaly, No Pulsatile Mass, Soft , Tenderness (left lower quadrant tenderness) Back: Normal Inspection, No Vertebral Tenderness, CVA Tenderness (L) Extremity: Normal Capillary Refill, Normal Inspection, Normal Range of Motion Neurologic/Psychiatric: Alert, Oriented x3, Normal Mood/Affect Skin: Normal Color, Warm/Dry Lymphatic: No Adenopathy (WM CORDERO STUDENT) General Appearance: No Apparent Distress, WD/WN Cardiovascular: Regular Rate, Rhythm, No Murmur Respiratory: Lungs Clear, Normal Breath Sounds Gastrointestinal: Soft, Tenderness (left lower quadrant tenderness) Back: CVA Tenderness (L) (mild) Neurologic/Psychiatric: Alert, Oriented x3 (MERRICK DUEÑAS MD) Progress/Results/Core Measures Results/Orders Lab Results Laboratory Tests Test 03/11/18 14:53 03/11/18 15:09 Range/Units Urine Color YELLOW Urine Clarity SLIGHTLY CLOUDY Urine pH 7 5-9 Urine Specific [place] 1.005 L 1.016-1.022 Urine Protein NEGATIVE NEGATIVE Urine Glucose (UA) NEGATIVE NEGATIVE Urine Ketones NEGATIVE NEGATIVE Urine Nitrite NEGATIVE NEGATIVE Urine Bilirubin NEGATIVE NEGATIVE Urine Urobilinogen NORMAL NORMAL MG/DL Urine Leukocyte Esterase 1+ H NEGATIVE Urine RBC (Auto) NEGATIVE NEGATIVE Urine RBC NONE /HPF Urine WBC 2-5 /HPF Urine Squamous Epithelial Cells 5-10 /HPF Urine Crystals NONE /LPF Urine Bacteria FEW H /HPF Urine Casts NONE /LPF Urine Mucus NEGATIVE /LPF Urine Culture Indicated NO White Blood Count 13.5 H 4.3-11.0 10^3/uL Red Blood Count 4.87 4.35-5.85 10^6/uL Hemoglobin 15.6 11.5-16.0 G/DL Hematocrit 45 35-52 % Mean Corpuscular Volume 92 80-99 FL Mean Corpuscular Hemoglobin 32 25-34 PG Mean Corpuscular Hemoglobin Concent 35 32-36 G/DL Red Cell Distribution Width 14.9 H 10.0-14.5 % Platelet Count 421 H 130-400 10^3/uL Mean Platelet Volume 9.7 7.4-10.4 FL Neutrophils (%) (Auto) 79 H 42-75 % Lymphocytes (%) (Auto) 16 12-44 % Monocytes (%) (Auto) 4 0-12 % Eosinophils (%) (Auto) 1 0-10 % Basophils (%) (Auto) 0 0-10 % Neutrophils # (Auto) 10.7 H 1.8-7.8 X 10^3 Lymphocytes # (Auto) 2.2 1.0-4.0 X 10^3 Monocytes # (Auto) 0.6 0.0-1.0 X 10^3 Eosinophils # (Auto) 0.1 0.0-0.3 10^3/uL Basophils # (Auto) 0.0 0.0-0.1 10^3/uL Sodium Level 140 135-145 MMOL/L Potassium Level 4.2 3.6-5.0 MMOL/L Chloride Level 106 98-107 MMOL/L Carbon Dioxide Level 21 21-32 MMOL/L Anion Gap 13 5-14 MMOL/L Blood Urea Nitrogen 8 7-18 MG/DL Creatinine 0.85 0.60-1.30 MG/DL Estimat Glomerular Filtration Rate > 60 BUN/Creatinine Ratio 9 Glucose Level 121 H 70-105 MG/DL Calcium Level 10.2 H 8.5-10.1 MG/DL Total Bilirubin 0.3 0.1-1.0 MG/DL Aspartate Amino Transf (AST/SGOT) 23 5-34 U/L Alanine Aminotransferase (ALT/SGPT) 28 0-55 U/L Alkaline Phosphatase 174 H 40-136 U/L Total Protein 8.0 6.4-8.2 GM/DL Albumin 4.6 H 3.2-4.5 GM/DL (MERRICK DUEÑAS MD) My Orders Orders - MERRICK DUEÑAS MD Fentanyl Injection (Sublimaze Injection (03/11/18 15:50) Ct Abd/Pelvis Wo(Kidney Stone) (03/11/18 16:28) (MERRICK DUEÑAS MD) Medications Given in ED Current Medications Medications Dose Ordered Sig/Pati Route Start Time Stop Time Status Last Admin Dose Admin Ketorolac Tromethamine 30 mg ONCE ONCE IVP 03/11/18 15:00 03/11/18 15:01 DC 03/11/18 15:20 30 MG Ondansetron HCl 4 mg ONCE ONCE IVP 03/11/18 15:45 03/11/18 15:46 DC 03/11/18 15:56 4 MG (MERRICK DUEÑAS MD) Vital Signs/I&O 03/11/18 14:56 Temp 97.2 Pulse 116 Resp 20 B/P (MAP) 170/96 (120) Pulse Ox 96 (MERRICK DUEÑAS MD) Progress Progress Note : Time: 15:22 Progress Note Spoke with Dr. Rai and [facility] regarding the patient's visits and when they are out with the plan of care she states that her last visit was on February 26, 2018 and she left the walk-in clinic AGAINST MEDICAL ADVICE. "I'm just going to go to the emergency room and wait until I stop peeing" Dr. Rai also said that there was a telephone encounter today with the patient and she was instructed to come to the [facility] or go to the emergency room by the [facility] nurse. (WM CORDERO STUDENT) Progress Note : Progress Note Seen and evaluated the patient and agree with above except as indicated. Rectal plan of care. Patient is here with left-sided flank and suprapubic pain. Has known kidney stone that she does not believe has passed yet. This is been going on for a month and a half. She has been unable to get in with the doctor because she is unable to pay the co-pay. She's had some concerns with the clinic and admits that she left on her last visit because she felt like she was getting the runaround. She has taken her meds as directed. She is out of her hydrocodone. She has been trying to drink a lot of fluids and this has not helped as of yet. She has started a new job and is working but is having difficulty due to pain. Has nausea but no vomiting. Evaluation as above. Labs and KUB ordered. Toradol and fentanyl ordered for pain. KUB does not demonstrate stone currently and we will get a ultrasound to evaluate for hydronephrosis. If this is grossly positive then CT can be considered. Patient has had multiple CT scans in the past and has increased lifetime radiation dose. This was discussed with the patient and my concerns expressed regarding the amount of radiological procedures. I being said she has multiple presentations with pain which dictates evaluation. Today we will try to avoid if possible but CT will have to be considered depending on what were finding. Patient verbalize understanding. 1630: I did discuss the case with Dr. Lerma regarding ultrasound results. Stone is not clearly identified. There is no hydronephrosis currently by given patient's symptoms he would recommend further evaluation with CT as the stone may have moved lower. We are trying to get into appointment for patient safety and referral. All this was discussed with the patient and she agrees at this point CT would be indicated and this was ordered. She is feeling much better with regard to pain currently. 1735: Patient's CT reviewed. Stone remains. She has decreased hydronephrosis though. At this point safe for discharge and outpatient follow-up. The clinic is working on getting follow-up. Case was discussed with Dr. Rai. At this point safe for discharge. Discharged home with return precautions. Patient verbalize understanding instructions and agreement with plan. (MERRICK DUEÑAS MD) Diagnostic Imaging Diagonstic Imaging: Xray Plain Films/CT/US/NM/MRI: abdomen Comments NAME: MYRNA MA MED REC#: [id number] PT STATUS: REG ER : 1975 PHYSICIAN: SANDRO JEFFRIES APRN ADMIT DATE: 03/11/18/ER Signed Date of Exam: 03/11/18 ABDOMEN/KUB 1VIEW Indication: Left-sided kidney stone. Time of exam 3:45 PM Correlation is made with prior study from 02/26/2018. Bowel gas pattern is unremarkable. The no definite radiopaque urinary tract calculi are seen on today's study. Previously noted ureteral calculus on the left is not well seen. Pelvic soft tissues are stable. Impression: No definite radiopaque urinary tract calculi are detected on today's exam. Dictated by: Dictated on workstation # [id number] Dict: 03/11/18 1535 Trans: 03/11/18 153 Interpreted by: LOUIE NO MD Electronically signed by: LOUIE NO MD 03/11/18 153 Diagonstic Imaging: Ultrasound Plain Films/CT/US/NM/MRI: abdomen Comments NAME: MYRNA MA MED REC#: [id number] PT STATUS: REG ER : 1975 PHYSICIAN: SANDRO JEFFRIES APRN ADMIT DATE: 03/11/18/ER Signed Date of Exam: 03/11/18 US RENAL LIMITED [id number] INDICATION: Left-sided flank pain. Left renal sonography is performed in the routine fashion. The left kidney measures 11.2 x 5.5 x 4.2 cm. There is no hydronephrosis or renal mass. Limited view of the bladder demonstrates a smooth appearance of the bladder. Neither ureteral jet could be visualized. IMPRESSION: Normal sonographic appearance of the left kidney with no hydronephrosis or gian calcification. Urinary bladder appears unremarkable although neither ureteral jet could be visualized. Correlate with CT if clinically warranted. Dictated by: Dictated on workstation # [id number] Dict: 03/11/18 1618 Trans: 03/11/18 1625 Interpreted by: NICK STEPHENS MD Electronically signed by: NICK STEPHENS MD 03/11/18 1625 Diagonstic Imaging: CT Plain Films/CT/US/NM/MRI: abdomen, pelvis Comments [place] NAME: MYRNA MA [facility] REC#: [id number] PT STATUS: REG ER : 1975 PHYSICIAN: MERRICK DUEÑAS MD ADMIT DATE: 03/11/18/ER Draft Date of Exam:03/11/18 CT ABD/PELVIS WO(KIDNEY STONE) PROCEDURE: CT urinary tract, rule out kidney stone. INDICATION: Left flank pain, history of kidney stones. TECHNIQUE: Noncontrast axial CT of the abdomen and pelvis with sagittal and coronal reformats. COMPARISON: 02/26/2018. FINDINGS: The lung bases are clear. The heart is normal in size. There is no pericardial effusion. The liver is borderline enlarged in size; no hepatic lesions are seen. Cholecystectomy clips are noted. The spleen appears normal. The pancreas appears normal. The adrenal glands appear normal. No calculi are seen in the right ureter, and there is no hydronephrosis. On the left, there is mild hydronephrosis and hydroureter, which appears improved when compared to 02/26/2018; however, there is a 7 mm calculus in the proximal left ureter near the ureteropelvic junction which is again seen and appears unchanged in position when compared to the prior exam. No bladder calculi are seen. Bowel loops are nondistended. No evidence of obstruction is seen. The appendix is not seen. No free fluid or free air is identified. No acute osseous abnormality is identified. IMPRESSION: 1. Unchanged position of a 7 mm calculus in the proximal left ureter. There is mild left hydronephrosis, which appears mildly improved. Dictated on workstation # [id number] Dict: 03/11/18 1656 Trans: 03/11/18 1704 [id number] Interpreted by: JOEY CONDE MD Electronically signed by: (MERRICK DUEÑAS MD) Departure Impression Primary Impression: Left ureteral stone Disposition: 01 HOME, SELF-CARE Condition: Stable Departure-Patient Inst. Decision time for Depature: 17:39 (MERRICK DUEÑAS MD) Referrals: [facility] (PCP/Family) Primary Care Physician ABRAHAM LERMA MD Patient Instructions: Kidney Stones (DC) Add. Discharge Instructions: All discharge instructions reviewed with patient and/or family. Voiced understanding. You have a kidney stone that does not appear to be moving well. The fluid back up behind the stone is minimal at this time which is good. You do need follow- up with a urologist in your clinic is trying to help with that. Continue to pursue that appointment. Take medication as directed. Do not exceed more than 4000 mg of Tylenol/acetaminophen daily. You may take the prescribed pain pill or Tylenol/acetaminophen 1000 mg every 6 hours as needed for pain but do not take both together as they have acetaminophen in both of them. Drink plenty of fluids. Return for worse pain, fever, vomiting, weakness, breathing problems, decreased urination or other concerns as needed. Scripts Hydrocodone Bit/Acetaminophen (Hydrocodone/Acetaminophen 5/325mg Tablet) 1 Tab Tab 1 EACH PO Q6H PRN for pain, #12 TAB 0 Refills Prov: MERRICK DUEÑAS MD 03/11/18 Work/School Note: Work Release Form Date Seen in the Emergency Department: Mar 11, 2018 Return to Work: Mar 13, 2018 Restrictions: No Restrictions Copy Copies To 1: RAMILA RAI MD, [employer] STUDENT Mar 11, 2018 15:00 MERRICK DUEÑAS MD Mar 11, 2018 16:06
[2018-03-11 15:21] LABS: BILIRUBIN,URINE NEGATIVE (NEGATIVE); CLARITY,URINE SLIGHTLY CLOUDY; COLOR,URINE YELLOW; GLUCOSE, URINE (UA) NEGATIVE (NEGATIVE); KETONES,URINE NEGATIVE (NEGATIVE); LEUKOCYTE ESTERASE ,URINE 1+ (NEGATIVE); NITRITE,URINE NEGATIVE (NEGATIVE); PH,URINE 7 (5-9); PROTEIN,URINE NEGATIVE (NEGATIVE); UROBILINOGEN,URINE NORMAL (NORMAL)
[2018-03-11 15:22] LABS: BASOPHILS % (AUTO) 0 % (0-10); EOSINOPHILS # (AUTO) 0.1 10^3/uL (0.0-0.3); EOSINOPHILS % (AUTO) 1 % (0-10); HEMATOCRIT 45 % (35-52); HEMOGLOBIN 15.6 G/DL (11.5-16.0); LYMPHOCYTES # (AUTO) 2.2 X 10^3 (1.0-4.0); LYMPHOCYTES % (AUTO) 16 % (12-44); MEAN CORPUSCULAR HEMOGLOBIN 32 PG (25-34); MEAN CORPUSCULAR HGB CONC 35 G/DL (32-36); MEAN CORPUSCULAR VOLUME 92 FL (80-99); MEAN PLATELET VOLUME 9.7 FL (7.4-10.4); MONOCYTES # (AUTO) 0.6 X 10^3 (0.0-1.0); MONOCYTES % (AUTO) 4 % (0-12); NEUTROPHILS # (AUTO) 10.7 X 10^3 (1.8-7.8); NEUTROPHILS % (AUTO) 79 % (42-75); PLATELET COUNT 421 10^3/uL (130-400); RED BLOOD COUNT 4.87 10^6/uL (4.35-5.85); RED CELL DISTRIBUTION WIDTH 14.9 % (10.0-14.5); WHITE BLOOD COUNT 13.5 10^3/uL (4.3-11.0)
[2018-03-11 15:34] LABS: BACTERIA,URINE FEW /HPF
[2018-03-11 15:37] LABS: ALANINE AMINOTRANSFERASE 28 U/L (0-55); ALBUMIN 4.6 GM/DL (3.2-4.5); ALKALINE PHOSPHATASE 174 U/L (40-136); BILIRUBIN,TOTAL 0.3 MG/DL (0.1-1.0); BUN/CREATININE RATIO 9; CALCIUM 10.2 MG/DL (8.5-10.1); CARBON DIOXIDE 21 MMOL/L (21-32); CHLORIDE 106 MMOL/L (98-107); CREATININE SERUM 0.85 MG/DL (0.60-1.30); GFR ESTIMATED > 60; GLUCOSE 121 MG/DL (70-105); POTASSIUM 4.2 MMOL/L (3.6-5.0); SODIUM 140 MMOL/L (135-145)
--- NOTE | 2018-03-11 15:39 | Diagnostic Imaging Report ---
Indication: Left-sided kidney stone. Time of exam 3:45 PM Correlation is made with prior study from 02/26/2018. Bowel gas pattern is unremarkable. The no definite radiopaque urinary tract calculi are seen on today's study. Previously noted ureteral calculus on the left is not well seen. Pelvic soft tissues are stable. Impression: No definite radiopaque urinary tract calculi are detected on today's exam. Dictated by: Dictated on workstation # [id number]
[2018-03-11] MEDS ORDERED: ONDANSETRON 4 MG/2 ML (SDV) Z0FRAN IVP ONE (15:45)
[2018-03-11] MEDS ORDERED: fentaNYL INJECTION 100 MCG/2 ML AMP IVP STA (15:50)
--- NOTE | 2018-03-11 16:24 | Diagnostic Imaging Report ---
INDICATION: Left-sided flank pain. Left renal sonography is performed in the routine fashion. The left kidney measures 11.2 x 5.5 x 4.2 cm. There is no hydronephrosis or renal mass. Limited view of the bladder demonstrates a smooth appearance of the bladder. Neither ureteral jet could be visualized. IMPRESSION: Normal sonographic appearance of the left kidney with no hydronephrosis or gian calcification. Urinary bladder appears unremarkable although neither ureteral jet could be visualized. Correlate with CT if clinically warranted. Dictated by: Dictated on workstation # [id number]
--- NOTE | 2018-03-11 17:05 | Diagnostic Imaging Report ---
PROCEDURE: CT urinary tract, rule out kidney stone. INDICATION: Left flank pain, history of kidney stones. TECHNIQUE: Noncontrast axial CT of the abdomen and pelvis with sagittal and coronal reformats. COMPARISON: 02/26/2018. FINDINGS: The lung bases are clear. The heart is normal in size. There is no pericardial effusion. The liver is borderline enlarged in size; no hepatic lesions are seen. Cholecystectomy clips are noted. The spleen appears normal. The pancreas appears normal. The adrenal glands appear normal. No calculi are seen in the right ureter, and there is no hydronephrosis. On the left, there is mild hydronephrosis and hydroureter, which appears improved when compared to 02/26/2018; however, there is a 7 mm calculus in the proximal left ureter near the ureteropelvic junction which is again seen and appears unchanged in position when compared to the prior exam. No bladder calculi are seen. Bowel loops are nondistended. No evidence of obstruction is seen. The appendix is not seen. No free fluid or free air is identified. No acute osseous abnormality is identified. IMPRESSION: 1. Unchanged position of a 7 mm calculus in the proximal left ureter. There is mild left hydronephrosis, which appears mildly improved. Dictated by: Dictated on workstation # [id number]
[2018-03-11] MEDS ORDERED: ACHD5005 PO (17:42)
[2018-03-11 17:48] VITALS: BP 145/87
== END 2018-03-11 17:47 | disposition home or self-care (01) ==
LOC: EDUNIT# 14:36 → ER 14:39
DX: N20.1 Calculus of ureter (principal); I10 Essential (primary) hypertension; G43.909 Migraine, unspecified, not intractable, without status migrainosus; E03.9 Hypothyroidism, unspecified; F41.9 Anxiety disorder, unspecified; F32.9 Major depressive disorder, single episode, unspecified; Z87.19 Personal history of other diseases of the digestive system; Z87.448 Personal history of other diseases of urinary system; Z88.5 Allergy status to narcotic agent; Z88.8 Allergy status to other drugs, medicaments and biological substances; Z79.51 Long term (current) use of inhaled steroids; Z77.22 Contact with and (suspected) exposure to environmental tobacco smoke (acute) (chronic); Z87.59 Personal history of other complications of pregnancy, childbirth and the puerperium; Z90.710 Acquired absence of both cervix and uterus; Z98.51 Tubal ligation status
CPT/HCPCS: 36415; 74018; 74176; 76775; 80053; 81000; 85025; 96374; 96375

== ENCOUNTER 2018-03-23 13:24 | Emergency (ER) | payer SELFPAY ==
[~2018-03-23] VITALS: Ht 160 cm; Wt 82.6 kg
[~2018-03-23 13:24] MED LIST changes: +TRAZ-190 PO; -TRAZ100T92 PO
[2018-03-23 14:32] LABS: BILIRUBIN,URINE NEGATIVE (NEGATIVE); CLARITY,URINE SLIGHTLY CLOUDY; COLOR,URINE YELLOW; GLUCOSE, URINE (UA) NEGATIVE (NEGATIVE); KETONES,URINE NEGATIVE (NEGATIVE); LEUKOCYTE ESTERASE ,URINE 3+ (NEGATIVE); NITRITE,URINE NEGATIVE (NEGATIVE); PH,URINE 6 (5-9); PROTEIN,URINE 2+ (NEGATIVE); UROBILINOGEN,URINE NORMAL (NORMAL)
[2018-03-23 14:46] LABS: BACTERIA,URINE LARGE /HPF
--- NOTE | 2018-03-23 15:03 | ED GU-Female ---
General Chief Complaint: Abdominal/GI Problems Stated Complaint: KIDNEY STONE PAIN Nursing Triage Note: PT STATES HX OF KIDNEY STONE, WAS SEEN HERE 10 DAYS AGO FOR THE SAME, CC TODAY OF LLQ PAIN AND ACROSS HER BACK. Nursing Sepsis Screen: No Definite Risk Source: patient Exam Limitations: no limitations History of Present Illness Date Seen by Provider: Mar 23, 2018 Time Seen by Provider: 13:50 Initial Comments The patient is a 43-year-old white female who reports to having continued left back pain from a kidney stone. She has previously been here on 01/30/[address] a CT scan was done which showed a 7 mm stone in the left proximal ureter. That time she was actually complaining of both sided back pain. She returned on 02/26 and had a repeat CT scan done which again showed no progress. She allegedly has been seen at [facility] as well. They were to have been arranging a urology appointment for her. She returned on [address] showed no change in the position of the stone and mild left hydroureter was noted. She returns today complaining of more pain. She is apparently out of pain medications. It is suggested that she was re-buffed relative to refill of pain medications from [facility]. She states she is to see Dr. Tavares a [place] urologist on 04/01 for the purposes of being remedying this issue. She states that she has been on Flomax 2 different times with little improvement in her circumstance. She also states that she has been taking fluids vigorously but has not seemingly been able to urinate since yesterday. She states the urine has appeared dark. Timing/Duration: other Severity/Quality: throbbing Location: left flank Radiation: none Activities at Onset: none Allergies and Home Medications Allergies Coded Allergies: prochlorperazine (Unverified Allergy, Mild, RASH, 08/07/06) codeine (Unverified Allergy, Unknown, PATIENT HAS RECEIVED MORPHINE & HYDROCODONE, 06/02/15) propoxyphene (Unverified Adverse Reaction, Mild, NAUSEA, 01/25/08) Home Medications Albuterol Sulfate 2.5 Mg/3 Ml Vial.neb, 2.5 MG IH Q4H PRN for SHORTNESS OF BREATH Prescribed by: DAVID RPADHAN on 02/16/17 2301 Carvedilol 6.25 Mg Tablet, 12.5 MG PO BID, (Reported) Clonidine HCl 0.1 Mg Tablet, 0.1 MG PO DAILY, (Reported) Hydrocodone Bit/Acetaminophen 1 Tab Tab, 1 EACH PO Q6H PRN for pain Prescribed by: MERRICK DUEÑAS on 03/11/18 1742 Hydrocodone/Acetaminophen 1 Each Tablet, 1 EACH PO Q4H PRN for PAIN-MODERATE TO SEVERE do not fill unless Bactrim and Flomax is also filled. Prescribed by: SANDRO JEFFRIES on 01/30/18 1432 Hydrocodone/Acetaminophen 1 Each Tablet, 1 EACH PO Q4H PRN for PAIN-MILD TO MODERATE Prescribed by: SANDRO JEFFRIES on 02/26/18 2230 Lisinopril 10 Mg Tablet, 10 MG PO DAILY, (Reported) Quetiapine Fumarate 300 Mg Tablet, 300 MG PO HS, (Reported) HAS NOT STARTED YET Sulfamethoxazole/Trimethoprim 1 Each Tablet, 1 EACH PO BID Prescribed by: SANDRO JEFFRIES on 02/26/182229 Sumatriptan Succinate 100 Mg Tablet, 100 MG PO PRN, (Reported) Triamcinolone Acet 15 Gm Cr, 15 GM TP DAILY Prescribed by: WU BALLESTEROS on 04/14/17 0346 Patient Home Medication List Home Medication List Reviewed: Yes Review of Systems Constitutional: see HPI EENTM: no symptoms reported Respiratory: no symptoms reported Cardiovascular: no symptoms reported Gastrointestinal: no symptoms reported Genitourinary: see HPI Musculoskeletal: no symptoms reported Skin: no symptoms reported Psychiatric/Neurological: No Symptoms Reported Endocrine: No Symptoms Reported Hematologic/Lymphatic: No Symptoms Reported Past Qmtaiub-Smaudp-Zoxpor Hx Patient Social History Alcohol Use: Denies Use Recreational Drug Use: Yes (LOTS OF PAIN MEDICATION USAGE) Drug of Choice: Prescription narcotics Type Used: Cigarettes 2nd Hand Smoke Exposure: Yes Recent Foreign Travel: No Contact w/Someone Who Travel: No Recent Infectious Disease Expo: No Recent Hopitalizations: No Immunizations Up To Date Tetanus Booster (TDap): Less than 5yrs Seasonal Allergies Seasonal Allergies: Yes Past Medical History Surgeries: Yes (RT HAND) Section, Gallbladder, Hysterectomy, Orthopedic, 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 Respiratory: Yes Chronic Bronchitis Currently Using CPAP: No Currently Using BIPAP: No Cardiac: Yes (tachycardia) Hypertension, Syncope Neurological: Yes Headaches /Migraines, Neuropathy : No Reproductive Disorders: No Female Reproductive Disorders: Polycystic 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, 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 Sexually Transmitted Disease: No Genitourinary: Yes Kidney Stones, Renal Failure Gastrointestinal: Yes (fatty liver dz) Liver Disease/Jaundice Musculoskeletal: Yes Chronic Back Pain Endocrine: Yes Hypothyroidsim HEENT: No Loss of Vision: Denies Hearing Impairment: Denies Cancer: No Psychosocial: Yes Anxiety, Depression Integumentary: No Blood Disorders: No Family Medical History Heart Disease, Cancer, Diabetes Physical Exam Vital Signs Vital Signs - First Documented 03/23/18 13:40 Temp 97.5 Pulse 112 Resp 20 B/P (MAP) 118/78 (91) Pulse Ox 98 O2 Delivery Room Air Capillary Refill : Less Than 3 Seconds General Appearance: WD/WN, no apparent distress HEENT: normal ENT inspection Neck: full range of motion Cardiovascular: normal peripheral pulses, regular rate, rhythm, no edema, no gallop, no JVD, no murmur Respiratory: chest non-tender, lungs clear, normal breath sounds, no respiratory distress, no accessory muscle use, respiratory distress Gastrointestinal: normal bowel sounds Back: other (left flank tenderness to percussion) 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, no motor/sensory deficits, alert, normal mood/affect, oriented x 3 Skin: normal color, warm/dry, cyanosis, cool, diaphoresis, pallor Lymphatic: no adenopathy Progress/Results/Core Measures Suspected Sepsis Recent Fever Within 48 Hours: No Infection Criteria Present: None New/Unexplained Altered Menta: No Sepsis Screen: No Definite Risk SIRS Temperature:97.5 Pulse: 112 Respiratory Rate: 20 Blood Pressure 118 /78 Mean: 91 Results/Orders Lab Results Laboratory Tests Test 03/23/18 14:10 Range/Units Urine Color YELLOW Urine Clarity SLIGHTLY CLOUDY Urine pH 6 5-9 Urine Specific [place] 1.020 1.016-1.022 Urine Protein 2+ H NEGATIVE Urine Glucose (UA) NEGATIVE NEGATIVE Urine Ketones NEGATIVE NEGATIVE Urine Nitrite NEGATIVE NEGATIVE Urine Bilirubin NEGATIVE NEGATIVE Urine Urobilinogen NORMAL NORMAL MG/DL Urine Leukocyte Esterase 3+ H NEGATIVE Urine RBC (Auto) 5+ H NEGATIVE Urine RBC 5-10 H /HPF Urine WBC 10-25 H /HPF Urine Squamous Epithelial Cells 10-25 H /HPF Urine Crystals NONE /LPF Urine Bacteria LARGE H /HPF Urine Casts NONE /LPF Urine Mucus LARGE H /LPF Urine Culture Indicated YES My Orders Orders - MICAH SALAMANCA MD Ua Culture If Indicated (03/23/18 13:55) Urine Culture (03/23/18 14:10) Ns Iv 1000 Ml (Sodium Chloride 0.9%) (03/23/18 15:15) Ceftriaxone Injection (Rocephin Injectio (03/23/18 15:15) Ketorolac Injection (Toradol Injection) (03/23/18 15:45) Medications Given in ED Current Medications Medications Dose Ordered Sig/Pati Route Start Time Stop Time Status Last Admin Dose Admin Ceftriaxone Sodium 1000 mg/ Sodium Chloride 50 ml @ 100 mls/hr ONCE ONCE IV 03/23/18 15:15 03/23/18 15:44 DC 03/23/18 15:42 100 MLS/HR Ketorolac Tromethamine 30 mg ONCE ONCE IVP 03/23/18 15:45 03/23/18 15:46 DC 03/23/18 15:47 30 MG Vital Signs/I&O 03/23/18 03/23/18 13:40 15:47 Temp 97.5 97.5 Pulse 112 Resp 20 B/P (MAP) 118/78 (91) Pulse Ox 98 O2 Delivery Room Air Capillary Refill : Less Than 3 Seconds Blood Pressure Mean: 91 Departure Communication (Admissions) UA is consistent with urinary tract infection. The patient will be given a liter of fluid and a dose of Rocephin Impression Primary Impression: left ureteral stone Additional Impression: mild to moderate left ureteral hydronephrosis Disposition: 01 HOME, SELF-CARE Condition: Stable/Unchanged Departure-Patient Inst. Decision time for Depature: 16:08 Referrals: [facility] (PCP/Family) Primary Care Physician Add. Discharge Instructions: All discharge instructions reviewed with patient and/or family. Voiced understanding. Fill and take antibiotics until gone. Keep appointment with Dr. Tavares on 04/01 Scripts Cefdinir (Cefdinir) 300 Mg Capsule 300 MG PO twice a day, #14 CAP Prov: MICAH SALAMANCA MD 03/23/18 MICAH SALAMANCA MD Mar 23, 2018 15:03
[2018-03-23] MEDS ORDERED: cefTRIAXone INJECTION 1,000 MG in NS (IVPB) 50 ML IV ONE (15:15)
[2018-03-23] MEDS ORDERED: NS IV 1000 ML 1,000 ML IV SCH (15:15)
[2018-03-23] MEDS ORDERED: KETOROLAC 30 MG/ML VIAL IVP ONE (15:45)
[2018-03-23] MEDS ORDERED: CEFD300C3 PO (16:11)
[2018-03-23] MEDS ORDERED: ACHD5005 PO (16:45)
[2018-03-23 16:50] VITALS: BP 125/89
== END 2018-03-23 16:50 | disposition home or self-care (01) ==
LOC: EDUNIT# 13:24 → ER 13:26
DX: N13.2 Hydronephrosis with renal and ureteral calculous obstruction (principal); I10 Essential (primary) hypertension; F41.9 Anxiety disorder, unspecified; F32.9 Major depressive disorder, single episode, unspecified; E03.9 Hypothyroidism, unspecified; G43.909 Migraine, unspecified, not intractable, without status migrainosus; F19.10 Other psychoactive substance abuse, uncomplicated; Z77.22 Contact with and (suspected) exposure to environmental tobacco smoke (acute) (chronic); Z87.19 Personal history of other diseases of the digestive system; Z87.448 Personal history of other diseases of urinary system; Z90.710 Acquired absence of both cervix and uterus; Z82.49 Family history of ischemic heart disease and other diseases of the circulatory system; Z87.59 Personal history of other complications of pregnancy, childbirth and the puerperium; Z98.51 Tubal ligation status; Z88.5 Allergy status to narcotic agent; Z88.8 Allergy status to other drugs, medicaments and biological substances; Z79.51 Long term (current) use of inhaled steroids
CPT/HCPCS: 81000; 87088; 96374; 96375; 99282

== ENCOUNTER 2018-06-16 07:37 | Emergency (ER) | payer SELFPAY ==
[~2018-06-16] VITALS: Ht 160 cm; Wt 81.6 kg
[~2018-06-16 07:37] MED LIST changes: -BENZ-13 PO; +BENZ100C18 PO; +CEFD300C3 PO; +HYDR-4226 PO; -HYDR-757 PO; -OXYC-197 PO; -OXYC-202 PO; +OXYC1TAB12 PO; +OXYC1TAB87 PO
--- NOTE | 2018-06-16 08:02 | ED Integumentary General ---
General Chief Complaint: Bite-Animal/Human/Insect Stated Complaint: TICK BITE Source: patient Exam Limitations: no limitations History of Present Illness Date Seen by Provider: Jun 16, 2018 Time Seen by Provider: 07:48 Initial Comments Patient presents to ER by private conveyance with chief complaint that for the past 4 days she's had some generalized malaise, achiness, body aches joints aching. She spent most her time in bed yesterday. Today she had some itching and pain in her back between her shoulder blades and had her look at it and there is a small tick that he pulled off. He is not sure if he got all of it. There is no rash on her body fevers documented. She's been working on the garden lately and she sure that's when the tick found her. She's having no nausea diarrhea vomiting constipation and abdominal pain chest pain shortness of breath cough Allergies and Home Medications Allergies Coded Allergies: prochlorperazine (Unverified Allergy, Mild, RASH, 08/07/06) codeine (Unverified Allergy, Unknown, PATIENT HAS RECEIVED MORPHINE & HYDROCODONE, 06/02/15) propoxyphene (Unverified Adverse Reaction, Mild, NAUSEA, 01/25/08) Home Medications Albuterol Sulfate 2.5 Mg/3 Ml Vial.neb, 2.5 MG IH Q4H PRN for SHORTNESS OF BREATH Prescribed by: DAVID PRADHAN on 02/16/17 2301 Carvedilol 6.25 Mg Tablet, 12.5 MG PO BID, (Reported) Cefdinir 300 Mg Capsule, 300 MG PO twice a day Prescribed by: MICAH SALAMANCA on 03/23/18 1611 Clonidine HCl 0.1 Mg Tablet, 0.1 MG PO DAILY, (Reported) Hydrocodone Bit/Acetaminophen 1 Tab Tab, 1 EACH PO Q6H PRN for pain Prescribed by: MERRICK DUEÑAS on 03/11/18 1742 Hydrocodone Bit/Acetaminophen 1 Tab Tab, 1 TAB PO TWICE A DAY Prescribed by: MICAH SALAMANCA on 03/23/18 1645 Hydrocodone/Acetaminophen 1 Each Tablet, 1 EACH PO Q4H PRN for PAIN-MODERATE TO SEVERE do not fill unless Bactrim and Flomax is also filled. Prescribed by: SANDRO JEFFRIES on 01/30/18 1432 Hydrocodone/Acetaminophen 1 Each Tablet, 1 EACH PO Q4H PRN for PAIN-MILD TO MODERATE Prescribed by: SANDRO JEFFRIES on 02/26/182229 Lisinopril 10 Mg Tablet, 10 MG PO DAILY, (Reported) Quetiapine Fumarate 300 Mg Tablet, 300 MG PO HS, (Reported) HAS NOT STARTED YET Sulfamethoxazole/Trimethoprim 1 Each Tablet, 1 EACH PO BID Prescribed by: SANDRO JEFFRIES on 02/26/182229 Sumatriptan Succinate 100 Mg Tablet, 100 MG PO PRN, (Reported) Triamcinolone Acet 15 Gm Cr, 15 GM TP DAILY Prescribed by: WU BALLESTEROS on 04/14/17 0346 Patient Home Medication List Home Medication List Reviewed: Yes Review of Systems Review of Systems Constitutional: chills; No diaphoresis, No fever; malaise; No weakness EENTM: No hearing loss, No ear pain, No eye pain Respiratory: No cough, No short of breath Cardiovascular: No chest pain, No edema Gastrointestinal: No abdominal pain, No nausea Genitourinary: No discharge, No dysuria Past Yemskbr-Gexzhz-Ufgjlo Hx Patient Social History Alcohol Use: Denies Use Recreational Drug Use: Yes Drug of Choice: Prescription narcotics Smoking Status: Current Everyday Smoker Type Used: Cigarettes 2nd Hand Smoke Exposure: Yes Recent Hopitalizations: No Immunizations Up To Date Tetanus Booster (TDap): Less than 5yrs Seasonal Allergies Seasonal Allergies: Yes Past Medical History Surgeries: Yes (RT HAND) Section, Gallbladder, Hysterectomy, Orthopedic, 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 Respiratory: Yes Chronic Bronchitis Currently Using CPAP: No Currently Using BIPAP: No Cardiac: Yes (tachycardia) Hypertension, Syncope Neurological: Yes Headaches /Migraines, Neuropathy Reproductive Disorders: No Female Reproductive Disorders: 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, 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 Sexually Transmitted Disease: No Genitourinary: Yes Kidney Stones, Renal Failure Gastrointestinal: Yes (fatty liver dz) Liver Disease/Jaundice Musculoskeletal: Yes Chronic Back Pain Endocrine: Yes Hypothyroidsim HEENT: No Loss of Vision: Denies Hearing Impairment: Denies Cancer: No Psychosocial: Yes Anxiety, Depression Integumentary: No Blood Disorders: No Family Medical History Heart Disease, Cancer, Diabetes Physical Exam Vital Signs Capillary Refill : General Appearance: WD/WN, no apparent distress HEENT: PERRL/EOMI, normal ENT inspection Neck: non-tender, normal inspection Cardiovascular: normal peripheral pulses, regular rate, rhythm Respiratory: chest non-tender, lungs clear, normal breath sounds, no respiratory distress, no accessory muscle use Gastrointestinal: normal bowel sounds, soft Neurologic/Psychiatric: alert, oriented x 3 Skin: normal color, warm/dry, other (erythematous, indurated, nodule with a small 4 mm scar on the midline of her upper back between the shoulder blades.) Progress/Results/Core Measures Results/Orders My Orders Orders - WU BALLESTEROS Tick Panel With Lyme Eia (06/16/18 07:54) Progress Progress Note : Time: 08:00 Progress Note D roofed the small scab on the back. There is a small black flake in the middle of it; not sure if that was a tick or not. We'll put her on doxycycline and get a tick titer and encourage her to use Tylenol. She says she can't use NSAIDs because of a history renal failure and she was told to go easy on the Tylenol so we'll give her some tramadol for her pain. Statistically most likely she's having viral malaise and body aches. Departure Impression Primary Impression: Tick bite Qualified Codes: W57.XXXA - Bitten or stung by nonvenomous insect and other nonvenomous arthropods, initial encounter Additional Impressions: Malaise and fatigue Body aches Disposition: 01 HOME, SELF-CARE Condition: Stable Departure-Patient Inst. Decision time for Depature: 08:04 Referrals: [facility] (PCP/Family) Primary Care Physician Patient Instructions: Insect Bites and Stings (DC) Add. Discharge Instructions: Use Tylenol 1000 mg every 8 hours as needed for body aches. If you're still having pain or misery you can use the tramadol 1 tablet every 6 hours. Use muscle rubs and heating pads. 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 Follow-up next week with your primary care doctor to review the results of the tick titer lab test. All discharge instructions reviewed with patient and/or family. Voiced understanding. Work/School Note: Work Release Form Date Seen in the Emergency Department: Jun 16, 2018 Return to Work: Jun 17, 2018 Restrictions: No Restrictions Copy Copies To 1: NORAH JAIME TITUS J Jun 16, 2018 08:02
[2018-06-16] MEDS ORDERED: TRAM50TA2 PO (08:08)
[2018-06-16] MEDS ORDERED: DOXY100T2 PO (08:08)
[2018-06-16 08:16] VITALS: BP 140/88
== END 2018-06-16 08:16 | disposition home or self-care (01) ==
LOC: EDUNIT# 07:37 → ER 07:38
DX: S30.860A Insect bite (nonvenomous) of lower back and pelvis, initial encounter (principal); S40.261A Insect bite (nonvenomous) of right shoulder, initial encounter; S40.262A Insect bite (nonvenomous) of left shoulder, initial encounter; R53.81 Other malaise; R53.83 Other fatigue; R42 Dizziness and giddiness; E03.9 Hypothyroidism, unspecified; F41.9 Anxiety disorder, unspecified; F32.9 Major depressive disorder, single episode, unspecified; I10 Essential (primary) hypertension; G43.909 Migraine, unspecified, not intractable, without status migrainosus; F17.210 Nicotine dependence, cigarettes, uncomplicated; Z88.5 Allergy status to narcotic agent; Z87.442 Personal history of urinary calculi; Z90.710 Acquired absence of both cervix and uterus; Z87.448 Personal history of other diseases of urinary system; Z98.51 Tubal ligation status; Z98.890 Other specified postprocedural states; Z88.8 Allergy status to other drugs, medicaments and biological substances; Z79.51 Long term (current) use of inhaled steroids; W57.XXXA Bitten or stung by nonvenomous insect and other nonvenomous arthropods, initial encounter
CPT/HCPCS: 36415; 86618; 86666; 86668; 86757; 99283

== ENCOUNTER 2018-08-14 06:18 | Emergency (ER) | payer SELFPAY ==
[~2018-08-14] VITALS: Ht 160 cm; Wt 81.6 kg
[~2018-08-14 06:18] MED LIST changes: +DOXY100T2 PO
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
[2018-08-14] MEDS ORDERED: TRAM-42 PO (06:56)
[2018-08-14] MEDS ORDERED: PRD20T PO (06:56)
[2018-08-14 07:01] VITALS: BP 126/70
== END 2018-08-14 07:01 | disposition home or self-care (01) ==
LOC: EDUNIT# 06:18 → ER 06:22
DX: M54.5 Low back pain (principal); G89.29 Other chronic pain; M51.36 Other intervertebral disc degeneration, lumbar region; J42 Unspecified chronic bronchitis; I10 Essential (primary) hypertension; G43.909 Migraine, unspecified, not intractable, without status migrainosus; E03.9 Hypothyroidism, unspecified; F41.9 Anxiety disorder, unspecified; F32.9 Major depressive disorder, single episode, unspecified; R40.2142 Coma scale, eyes open, spontaneous, at arrival to emergency department; R40.2252 Coma scale, best verbal response, oriented, at arrival to emergency department; R40.2362 Coma scale, best motor response, obeys commands, at arrival to emergency department; Z87.19 Personal history of other diseases of the digestive system; Z87.442 Personal history of urinary calculi; Z87.448 Personal history of other diseases of urinary system; Z82.49 Family history of ischemic heart disease and other diseases of the circulatory system; Z88.5 Allergy status to narcotic agent; Z88.8 Allergy status to other drugs, medicaments and biological substances; Z79.51 Long term (current) use of inhaled steroids; Z79.52 Long term (current) use of systemic steroids; Z77.22 Contact with and (suspected) exposure to environmental tobacco smoke (acute) (chronic); Z90.710 Acquired absence of both cervix and uterus; Z98.51 Tubal ligation status; Z98.890 Other specified postprocedural states; V40.5XXA Car driver injured in collision with pedestrian or animal in traffic accident, initial encounter
CPT/HCPCS: 99281

== ENCOUNTER 2018-12-11 13:13 | Inpatient (IN) | payer SELFPAY ==
[~2018-12-11] VITALS: Ht 160 cm; Wt 87.1 kg
[~2018-12-11 13:13] MED LIST changes: -GABA600T2 PO; +GBPN600T PO; +TRAM-42 PO
[2018-12-11 13:40] LABS: BASOPHILS % (AUTO) 0 % (0-10); EOSINOPHILS % (AUTO) 0 % (0-10); HEMATOCRIT 41 % (35-52); HEMOGLOBIN 13.2 G/DL (11.5-16.0); LYMPHOCYTES # (AUTO) 1.6 X 10^3 (1.0-4.0); LYMPHOCYTES % (AUTO) 8 % (12-44); MEAN CORPUSCULAR HEMOGLOBIN 31 PG (25-34); MEAN CORPUSCULAR HGB CONC 33 G/DL (32-36); MEAN CORPUSCULAR VOLUME 96 FL (80-99); MEAN PLATELET VOLUME 10.3 FL (7.4-10.4); MONOCYTES # (AUTO) 1.6 X 10^3 (0.0-1.0); MONOCYTES % (AUTO) 8 % (0-12); NEUTROPHILS # (AUTO) 16.5 X 10^3 (1.8-7.8); NEUTROPHILS % (AUTO) 84 % (42-75); PLATELET COUNT 271 10^3/uL (130-400); RED CELL DISTRIBUTION WIDTH 14.2 % (10.0-14.5); WHITE BLOOD COUNT 19.7 10^3/uL (4.3-11.0)
--- NOTE | 2018-12-11 13:43 | ED General ---
General Chief Complaint: General Problems/Pain Stated Complaint: WEAKNESS Source of Information: Patient Exam Limitations: Physical Impairments History of Present Illness Date Seen by Provider: Dec 11, 2018 Time Seen by Provider: 13:15 Initial Comments Evaluated EMS with report of altered mental status and weakness. Patient was hypoxic for EMS on their arrival with O2 sat 88% on room air. They did do a DuoNeb and started on oxygen which brought her O2 sats up in the mid 90s. Patient still confused but does answer questions and follows simple commands. Apparently she was at work yesterday and was having difficulty so they sent her home. Family found her later in her car and brought her into the house. She continues to be confused this morning and was transported here for further evaluation. Patient complains of some right arm pain at the elbow. Otherwise is confused appearing. O2 saturations improved on arrival but patient's became increasingly somnolent and O2 sat declined 88%. Restarted on O2. History limited due to patient's current confusion. Timing/Duration: 12-24 Hours Severity: Moderate Associated Systoms: No Cough; Fever/Chills; No Nausea/Vomiting, No Shortness of Air; Weakness Allergies and Home Medications Allergies Coded Allergies: prochlorperazine (Unverified Allergy, Mild, RASH, 08/07/06) codeine (Unverified Allergy, Unknown, PATIENT HAS RECEIVED MORPHINE & HYDROCODONE, 06/02/15) propoxyphene (Unverified Adverse Reaction, Mild, NAUSEA, 01/25/08) Home Medications Albuterol Sulfate 2.5 Mg/3 Ml Vial.neb, 2.5 MG IH Q4H PRN for SHORTNESS OF BREATH Prescribed by: DAVID PRADHAN on 02/16/17 2301 Carvedilol 6.25 Mg Tablet, 12.5 MG PO BID, (Reported) Clonidine HCl 0.1 Mg Tablet, 0.1 MG PO DAILY, (Reported) Doxycycline Hyclate 100 Mg Tablet, 100 MG PO BID Prescribed by: WU BALLESTEROS on 06/16/18 0808 Lisinopril 10 Mg Tablet, 10 MG PO DAILY, (Reported) Prednisone 20 Mg Tab, 1 TAB PO DAILY Prescribed by: ALEXEI VARGAS on 08/14/18 0656 Quetiapine Fumarate 300 Mg Tablet, 300 MG PO HS, (Reported) HAS NOT STARTED YET Sumatriptan Succinate 100 Mg Tablet, 100 MG PO PRN, (Reported) Tramadol HCl 50 Mg Tablet, 50 MG PO Q6H PRN for PAIN Prescribed by: WU BALLESTEROS on 06/16/18 0808 Tramadol HCl 50 Mg Tablet, 50 MG PO TID PRN for PAIN-MODERATE TO SEVERE Do not take with your sumatriptan Prescribed by: ALEXEI VARGAS on 08/14/18 0656 Patient Home Medication List Home Medication List Reviewed: Yes Review of Systems Review of Systems Constitutional: see HPI, fever (noted on arrival), weakness EENTM: no symptoms reported Respiratory: short of breath; No wheezing Cardiovascular: No chest pain, No edema Gastrointestinal: abdominal pain (lower bilateral); No nausea, No vomiting Genitourinary: no symptoms reported Musculoskeletal: joint pain, muscle pain Skin: lesions (nodular lesion left and right lower extremity) Psychiatric/Neurological: See HPI, Weakness All Other Systems Reviewed Negative Unless Noted: Yes Past [id number]-Dulrhj-Jjuckc Hx Past Med/Social Hx: Reviewed Nursing Past Med/Soc Hx Patient Social History Alcohol Use: Denies Use Recreational Drug Use: No Drug of Choice: Prescription narcotics Smoking Status: Current Everyday Smoker Type Used: Cigarettes 2nd Hand Smoke Exposure: Yes Recent Hopitalizations: No Immunizations Up To Date Tetanus Booster (TDap): Less than 5yrs Seasonal Allergies Seasonal Allergies: Yes Past Medical History Surgeries: Yes (RT HAND) Section, Gallbladder, Hysterectomy, Orthopedic, 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 Respiratory: Yes Chronic Bronchitis Currently Using CPAP: No Currently Using BIPAP: No Cardiac: Yes (tachycardia) Hypertension, Syncope Neurological: Yes Headaches /Migraines, Neuropathy Reproductive Disorders: No Female Reproductive Disorders: Polycystic Ovarian Dis [employer] History: Hysterectomy Sexually Transmitted Disease: No Genitourinary: Yes Kidney Stones, Renal Failure Gastrointestinal: Yes (fatty liver dz) Liver Disease/Jaundice Musculoskeletal: Yes (lumbar disc disease) Chronic Back Pain Endocrine: Yes Hypothyroidsim HEENT: No Loss of Vision: Denies Hearing Impairment: Denies Cancer: No Psychosocial: Yes Anxiety, Depression Integumentary: No Blood Disorders: No Family Medical History Reviewed Nursing Family Hx Heart Disease, Cancer, Diabetes Physical Exam-Suspected Sepsis Physical Exam Vital Signs Vital Signs - First Documented 12/11/18 13:13 Temp 99.2 Pulse 110 Resp 16 B/P (MAP) 118/74 (89) Pulse Ox 94 O2 Delivery Nasal Cannula O2 Flow Rate 2.00 Capillary Refill : Height, Weight, BMI Height: 5'3.00" Weight: 180lbs. 0oz. 81.497115hl; 34.54 BMI Method:Stated General Appearance: No Apparent Distress, Other (somnolent) HEENT: PERRL/EOMI, Pharynx Normal Neck: Non Tender, Supple Respiratory: Crackles (basilar), Expiration, Wheezing Cardiovascular: No Murmur, Tachycardia Gastrointestinal: Non Tender, Soft Back: Normal Inspection, No CVA Tenderness, No Vertebral Tenderness Extremity: Normal Range of Motion, Other (tender to right elbow area. No obvious deformity or contusions.) Neurologic/Psychiatric: Alert, Oriented x3 Skin: normal color, warm/dry, other (has 2-3 cm circular lesion to the medial left leg just above the knee and to the medial anterior lower leg in the upper one third on the gardner.) Focused Exam Lactate Level 12/11/18 13:29: Lactic Acid Level 1.89 Lactic Acid Level Laboratory Tests Test 12/11/18 13:29 Lactic Acid Level 1.89 MMOL/L (0.50-2.00) Progress/Results/Core Measures Suspected Sepsis SIRS Temperature: Pulse: Respiratory Rate: Laboratory Tests 12/11/18 13:29: White Blood Count 19.7H Blood Pressure / Mean: 12/11/18 13:29: Lactic Acid Level 1.89 Laboratory Tests 12/11/18 13:29: Creatinine 1.24, INR Comment 1.0, Platelet Count 271, Total Bilirubin 0.6 Results/Orders Lab Results Laboratory Tests Test 12/11/18 13:29 12/11/18 13:35 12/11/18 14:20 Range/Units White Blood Count 19.7 H 4.3-11.0 10^3/uL Red Blood Count 4.23 L 4.35-5.85 10^6/uL Hemoglobin 13.2 11.5-16.0 G/DL Hematocrit 41 35-52 % Mean Corpuscular Volume 96 80-99 FL Mean Corpuscular Hemoglobin 31 25-34 PG Mean Corpuscular Hemoglobin Concent 33 32-36 G/DL Red Cell Distribution Width 14.2 10.0-14.5 % Platelet Count 271 130-400 10^3/uL Mean Platelet Volume 10.3 7.4-10.4 FL Neutrophils (%) (Auto) 84 H 42-75 % Lymphocytes (%) (Auto) 8 L 12-44 % Monocytes (%) (Auto) 8 0-12 % Eosinophils (%) (Auto) 0 0-10 % Basophils (%) (Auto) 0 0-10 % Neutrophils # (Auto) 16.5 H 1.8-7.8 X 10^3 Lymphocytes # (Auto) 1.6 1.0-4.0 X 10^3 Monocytes # (Auto) 1.6 H 0.0-1.0 X 10^3 Eosinophils # (Auto) 0.0 0.0-0.3 10^3/uL Basophils # (Auto) 0.0 0.0-0.1 10^3/uL Neutrophils % (Manual) 82 % Lymphocytes % (Manual) 12 % Monocytes % (Manual) 6 % Blood Morphology Comment NORMAL Prothrombin Time 13.1 12.2-14.7 SEC INR Comment 1.0 0.8-1.4 Activated Partial Thromboplast Time 28 24-35 SEC Sodium Level 139 135-145 MMOL/L Potassium Level 5.6 H 3.6-5.0 MMOL/L Chloride Level 107 98-107 MMOL/L Carbon Dioxide Level 20 L 21-32 MMOL/L Anion Gap 12 5-14 MMOL/L Blood Urea Nitrogen 25 H 7-18 MG/DL Creatinine 1.24 0.60-1.30 MG/DL Estimat Glomerular Filtration Rate 47 BUN/Creatinine Ratio 20 Glucose Level 96 70-105 MG/DL Lactic Acid Level 1.89 0.50-2.00 MMOL/L Calcium Level 8.6 8.5-10.1 MG/DL Corrected Calcium 8.5 8.5-10.1 MG/DL Total Bilirubin 0.6 0.1-1.0 MG/DL Aspartate Amino Transf (AST/SGOT) 616 H 5-34 U/L Alanine Aminotransferase (ALT/SGPT) 851 H 0-55 U/L Alkaline Phosphatase 288 H 40-136 U/L C-Reactive Protein High Sensitivity 2.71 H 0.00-0.50 MG/DL Total Protein 6.8 6.4-8.2 GM/DL Albumin 4.1 3.2-4.5 GM/DL Salicylates Level < 5.0 L 5.0-20.0 MG/DL Acetaminophen Level < 10 L 10-30 UG/ML Serum Alcohol < 10 <10 MG/DL Blood Gas Puncture Site RIGHT RADIAL Blood Gas Patient Temperature 99.2 Arterial Blood pH 7.30 *L 7.37-7.43 Arterial Blood Partial Pressure CO2 49 H 35-45 MMHG Arterial Blood Partial Pressure O2 72 L 79-93 MMHG Arterial Blood HCO3 23 23-27 MMOL/L Arterial Blood Total CO2 24.5 21.0-31.0 MMOL/L Arterial Blood Oxygen Saturation 94 94-100 % Arterial Blood Base Excess -2.4 -2.5-2.5 MMOL/L Wally Test POSITIVE Blood Gas Ventilator Setting NO Blood Gas Inspired Oxygen 2 L Urine Color YELLOW Urine Clarity VERY CLOUDY H Urine pH 5 5-9 Urine Specific [place] 1.025 H 1.016-1.022 Urine Protein 2+ H NEGATIVE Urine Glucose (UA) 2+ H NEGATIVE Urine Ketones NEGATIVE NEGATIVE Urine Nitrite NEGATIVE NEGATIVE Urine Bilirubin NEGATIVE NEGATIVE Urine Urobilinogen 1 NORMAL MG/DL Urine Leukocyte Esterase NEGATIVE NEGATIVE Urine RBC (Auto) 5+ H NEGATIVE Urine RBC 2-5 H /HPF Urine WBC NONE /HPF Urine Squamous Epithelial Cells 0-2 /HPF Urine Crystals PRESENT H /LPF Urine Amorphous Sediment MOD JANNETTE URATES H /LPF Urine Bacteria TRACE /HPF Urine Casts NONE /LPF Urine Mucus NEGATIVE /LPF Urine Culture Indicated CULTURE PENDING Urine Opiates Screen POSITIVE H NEGATIVE Urine Oxycodone Screen POSITIVE H NEGATIVE Urine Methadone Screen NEGATIVE NEGATIVE Urine Propoxyphene Screen NEGATIVE NEGATIVE Urine Barbiturates Screen NEGATIVE NEGATIVE Ur Tricyclic Antidepressants Screen NEGATIVE NEGATIVE Urine Phencyclidine Screen NEGATIVE NEGATIVE Urine Amphetamines Screen NEGATIVE NEGATIVE Urine Methamphetamines Screen NEGATIVE NEGATIVE Urine Benzodiazepines Screen NEGATIVE NEGATIVE Urine Cocaine Screen NEGATIVE NEGATIVE Urine Cannabinoids Screen NEGATIVE NEGATIVE Micro Results Microbiology 12/11/18 Influenza Types A,B Antigen (SUSANNA) - Final, Complete My Orders Orders - EMRRICK DUEÑAS MD Arterial Blood Gas (12/11/18 13:23) Hs C Reactive Protein (12/11/18 13:23) Cbc With Automated Diff (12/11/18 13:23) Comprehensive Metabolic Panel (12/11/18 13:23) Blood Culture (12/11/18 13:23) Sputum Culture (12/11/18 13:23) Urinalysis (12/11/18 13:23) Urine Culture (12/11/18 13:23) Protime With Inr (12/11/18 13:23) Partial Thromboplastin Time (12/11/18 13:23) Chest 1 View, Ap/Pa Only (12/11/18 13:23) Saline Lock/Iv-Start (12/11/18 13:23) Saline Lock/Iv-Start (12/11/18 13:23) Vital Signs Adult Sepsis Patie Q15M (12/11/18 13:23) O2 (12/11/18 13:23) Remove Rings In Anticipation O (12/11/18 13:23) Lactic Acid Analyzer (12/11/18 13:23) Influenza A And B Antigens (12/11/18 13:23) Drug Screen Stat (Urine) (12/11/18 13:23) Manual Differential (12/11/18 13:29) Acetaminophen (12/11/18 15:07) Alcohol (12/11/18 15:07) Salicylate (12/11/18 15:07) Ns Iv 1000 Ml (Sodium Chloride 0.9%) (12/11/18 15:17) Piperacillin Sodium/Tazobactam (Zosyn Vi (12/11/18 16:15) Piperacillin Sodium/Tazobactam (Zosyn Vi (12/11/18 16:05) Ns (Ivpb) (Sodium Chloride 0.9% Ivpb Bag (12/11/18 16:06) Vital Signs/I&O 12/11/18 12/11/18 12/11/18 13:13 13:42 16:35 Temp 99.2 98.4 Pulse 110 93 Resp 16 20 B/P (MAP) 118/74 (89) 119/85 (96) Pulse Ox 94 93 100 O2 Delivery Nasal Cannula Nasal Cannula Room Air O2 Flow Rate 2.00 2.00 Capillary Refill : Progress Note : Progress Note Seen and evaluated. IV by EMS. Labs, blood cultures, lactic acid, influenza screen, UA, chest x-ray and ABG ordered. Monitor patient. 1510: Drug screen positive for narcotics. I did have a discussion with the patient and she does admit that she's been taking hydrocodone APAP combination medicine and I am concerned about Tylenol overdose. This is been added. We also added alcohol and salicylates. Liver enzymes are elevated raising concern. Patient has received 1 L normal saline IV and we will repeat that now. X-rays concerning for right midlung infiltrate. Question aspiration. We will initiate antibiotic treatment and await results. Monitor patient. 1600: Tylenol level negative. She does have the right middle of the wound. And the hypoxia that was noted on arrival. She is doing much better on oxygen now. I did discuss the case with Dr. Brizuela and he accepts patient for admission, inpatient status for the right middle lobe pneumonia. We will initiate Zosyn 4.5 g IV now as this is likely from aspiration. Patient and family agree with plan. Diagnostic Imaging Diagonstic Imaging: Xray Plain Films/CT/US/NM/MRI: chest Comments [facility], [place] NAME: MYRNA MA MED REC#: [id number] PT STATUS: REG ER : 1975 PHYSICIAN: MERRICK DUEÑAS MD ADMIT DATE: 12/11/18/ER Draft Date of Exam:12/11/18 CHEST 1 VIEW, AP/PA ONLY EXAMINATION: Portable erect AP chest at 01:47 p.m. INDICATION: Weakness. FINDINGS: The heart is mildly enlarged and the heart and the central pulmonary vascularity do seem more prominent than on the prior exam of 11/25/2015. However, there is no evidence for overt failure. Even so, there could be an element of early pulmonary congestion. In addition, a vague area of increased density has developed in the right mid lung. This finding is worrisome for pneumonia/atelectasis. There is no significant pleural effusion identified. The mediastinum is not widened. The osseous structures are intact. IMPRESSION: Both the heart and the central pulmonary vascularity do seem more prominent than on the prior exam, but there is no evidence for overt failure. There does seem to be a new area of pneumonia/atelectasis in the right mid lung, however. A follow-up study will be recommended for continued evaluation. Dictated on workstation # [id number] Dict: 12/11/18 1442 Trans: 12/11/18 1451 [id number] Interpreted by: MARLIN LAGUNAS MD Electronically signed by: Departure Communication (Admissions) Time/Spoke to Admitting Phy: 16:00 Impression Primary Impression: Right middle lobe pneumonia Qualified Codes: J18.1 - Lobar pneumonia, unspecified organism Additional Impressions: Altered mental status Qualified Codes: R40.0 - Somnolence Hypoxia Lesion of lower extremity Disposition: ADMITTED INPATIENT Condition: Stable Admissions Decision to Admit Reason: Admit from ER (General) Decision to Admit/Date: Dec 11, 2018 Time/Decision to Admit Time: 16:00 Departure-Patient Inst. Referrals: [facility] [place] Primary Care Physician MERRICK DUEÑAS MD Dec 11, 2018 13:43
[2018-12-11 13:45] LABS: ABG BASE EXCESS -2.4 MMOL/L (-2.5-2.5); ABG OXYGEN SATURATION 94 % (94-100); ABG PCO2 49 MMHG (35-45); ABG PO2 72 MMHG (79-93); ABG TCO2 24.5 MMOL/L (21.0-31.0)
[2018-12-11 13:46] LABS: ALLENS TEST POSITIVE; INSPIRED O2 2 L; PATIENT TEMP 99.2; VENTILATOR NO
[2018-12-11 13:51] LABS: PROTHROMBIN TIME PATIENT 13.1 SEC (12.2-14.7)
[2018-12-11 14:01] LABS: ALBUMIN 4.1 GM/DL (3.2-4.5); BILIRUBIN,TOTAL 0.6 MG/DL (0.1-1.0); CALCIUM 8.6 MG/DL (8.5-10.1); CREATININE SERUM 1.24 MG/DL (0.60-1.30); POTASSIUM 5.6 MMOL/L (3.6-5.0); TOTAL PROTEIN 6.8 GM/DL (6.4-8.2)
--- NOTE | 2018-12-11 14:13 | NUR ---
PT IN NO DISTRESS, PATIENT DROWSY
[2018-12-11 14:25] LABS: BILIRUBIN,URINE NEGATIVE (NEGATIVE); CLARITY,URINE VERY CLOUDY; COLOR,URINE YELLOW; GLUCOSE, URINE (UA) 2+ (NEGATIVE); KETONES,URINE NEGATIVE (NEGATIVE); LEUKOCYTE ESTERASE ,URINE NEGATIVE (NEGATIVE); NITRITE,URINE NEGATIVE (NEGATIVE); PH,URINE 5 (5-9); PROTEIN,URINE 2+ (NEGATIVE); UROBILINOGEN,URINE 1 MG/DL (NORMAL)
[2018-12-11 14:42] LABS: AMPHETAMINE SCREEN, URINE NEGATIVE (NEGATIVE); BENZODIAZEPINES SCREEN URINE NEGATIVE (NEGATIVE); CANNABINOID SCREEN, URINE NEGATIVE (NEGATIVE); COCAINE SCREEN URINE NEGATIVE (NEGATIVE); METHAMPHETAMINE SCREEN URINE S NEGATIVE (NEGATIVE)
[2018-12-11 14:43] LABS: BARBITURATE SCREEN URINE NEGATIVE (NEGATIVE); METHADONE STAT NEGATIVE (NEGATIVE); OPIATE SCREEN URINE POSITIVE (NEGATIVE); OXYCODONE STAT POSITIVE (NEGATIVE); PROPOXYPHENE STAT NEGATIVE (NEGATIVE); TRICYCLIC ANTIDEPRESSANTS SCRE NEGATIVE (NEGATIVE)
[2018-12-11 14:47] LABS: AMORPHOUS SEDIMENT,UR MOD AMOR URATES /LPF; BACTERIA,URINE TRACE /HPF; SQUAMOUS EPITHELIAL CELL,UR 0-2 /HPF
--- NOTE | 2018-12-11 14:51 | Diagnostic Imaging Report ---
EXAMINATION: Portable erect AP chest at 01:47 p.m. INDICATION: Weakness. FINDINGS: The heart is mildly enlarged and the heart and the central pulmonary vascularity do seem more prominent than on the prior exam of 11/25/2015. However, there is no evidence for overt failure. Even so, there could be an element of early pulmonary congestion. In addition, a vague area of increased density has developed in the right mid lung. This finding is worrisome for pneumonia/atelectasis. There is no significant pleural effusion identified. The mediastinum is not widened. The osseous structures are intact. IMPRESSION: Both the heart and the central pulmonary vascularity do seem more prominent than on the prior exam, but there is no evidence for overt failure. There does seem to be a new area of pneumonia/atelectasis in the right mid lung, however. A follow-up study will be recommended for continued evaluation. Dictated by: Dictated on workstation # [id number]
--- NOTE | 2018-12-11 15:10 | NUR ---
PT SITTING UP IN BED ASKING FOR WATER, PHYSICIAN AGREED. PO FLUIDS GIVEN. FRIEND OR SPOUSE AT BEDSIDE
[2018-12-11 15:11] LABS: LYMPHOCYTES % (MANUAL) 12 %; MONOCYTES % (MANUAL) 6 %; NEUTROPHILS % (MANUAL) 82 %; RBC MORPH NORMAL
--- NOTE | 2018-12-11 15:14 | NUR ---
PT ADMITS TO TAKING HUSBANDS HYDROCODONE
[2018-12-11] MEDS ORDERED: NS IV 1000 ML 1,000 ML IV STA (15:17)
[2018-12-11 15:24] LABS: ACETAMINOPHEN < 10 UG/ML (10-30); SALICYLATE < 5.0 MG/DL (5.0-20.0)
--- NOTE | 2018-12-11 15:48 | NUR ---
PT IRRITABLE BECAUSE SHE SAID SHE NEEDS TO URINATE. PT INSTRUCTED SHE HAD A BUNCH AND TO TRY AND RELAX.
[2018-12-11] MEDS ORDERED: PIPERACILLIN/TAZO 4.5 GM VIAL (ZOSYN) IV ONE (16:05)
[2018-12-11] MEDS ORDERED: NS (IVPB) 100 ML ONE (16:06)
[2018-12-11] MEDS ORDERED: PIPERACILLIN SODIUM/TAZOBACTAM 4.5 GM in NS (IVPB) 100 ML IV ONE (16:15)
[2018-12-11 17:01] VITALS: BP 113/85
[2018-12-11] MEDS ORDERED: ONDANSETRON 4 MG/2 ML (SDV) Z0FRAN IV PRN (17:15)
[2018-12-11] MEDS: NS IV 1000 ML 1,000 ML IV SCH (17:15)
[2018-12-11 17:26] VITALS: BP 113/85
[2018-12-11] MEDS ORDERED: RT-ALBUTEROL/IPRATROPIUM 3 ML (DUONEB) VIAL INH PRN (17:45)
[2018-12-11] MEDS: RT-ALBUTEROL/IPRATROPIUM 3 ML (DUONEB) VIAL INH SCH ×2 (19:15→21:51)
[2018-12-11 20:10] VITALS: BP 116/79
--- NOTE | 2018-12-11 21:51 | History & Physicial (CHS) ---
HPI History of Present Illness: 43 yo female admitted through [facility] ED this afternoon following altered mental status and feeling weak. Patient was confused but is able to answer questions correctly. She has not a very good historian. She was brought in by EMS and required oxygen per [place] to bring her O2 sats up from 88%. She does admit to an occasional cough. She apparently also has been having some pain. She did take hydrocodone apparently them along to her for pain relief. Source: patient Exam Limitations: clinical condition Date seen by provider: Dec 11, 2018 Time Seen by Provider: 21:25 Attending Physician Sergio Chambers MD PCP Center/[facility] Consult Date of Admission Dec 11, 2018 at 16:08 Home Medications Home Medications Reviewed patient Home Medication Reconciliation performed by pharmacy medication reconciliations collision technician and/or nursing. Patients Allergies have been reviewed. Allergies Coded Allergies: prochlorperazine (Unverified Allergy, Mild, RASH, 08/07/06) codeine (Unverified Allergy, Unknown, PATIENT HAS RECEIVED MORPHINE & HYDROCODONE, 06/02/15) propoxyphene (Unverified Adverse Reaction, Mild, NAUSEA, 01/25/08) AUX-[place] Hx Patient Social History Alcohol Use: Denies Use Recreational Drug Use: No Drug of Choice: Prescription narcotics Smoking Status: Current Everyday Smoker Type Used: Cigarettes 2nd Hand Smoke Exposure: Yes Recent Foreign Travel: No Contact w/other who traveled: No Recent Hopitalizations: No Recent Infectious Disease Expo: No Immunizations Up To Date Tetanus Booster (TDap): Less than 5yrs Past Medical History Past medical history 1. Chronic back pain 2. Bipolar disorder with panic disorder and agoraphobia 3. Hypertension 4. History of illicit drug use and prescription narcotic abuse 5. Elevation of liver enzymes thought to be due to steatohepatitis 6. Polycystic ovarian syndrome 7. 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 D&C 2. Hysterectomy 3. Cholecystectomy 4. section 5. Tubal ligation Family Medical History Significant Family History: Heart Disease, Cancer, Diabetes Review of Systems (CHC) Constitutional: see HPI Reviewed Test Results Reviewed Test Results Lab Laboratory Tests Test 12/11/18 13:29 12/11/18 13:35 12/11/18 14:20 Range/Units White Blood Count 19.7 H 4.3-11.0 10^3/uL Red Blood Count 4.23 L 4.35-5.85 10^6/uL Hemoglobin 13.2 11.5-16.0 G/DL Hematocrit 41 35-52 % Mean Corpuscular Volume 96 80-99 FL Mean Corpuscular Hemoglobin 31 25-34 PG Mean Corpuscular Hemoglobin Concent 33 32-36 G/DL Red Cell Distribution Width 14.2 10.0-14.5 % Platelet Count 271 130-400 10^3/uL Mean Platelet Volume 10.3 7.4-10.4 FL Neutrophils (%) (Auto) 84 H 42-75 % Lymphocytes (%) (Auto) 8 L 12-44 % Monocytes (%) (Auto) 8 0-12 % Eosinophils (%) (Auto) 0 0-10 % Basophils (%) (Auto) 0 0-10 % Neutrophils # (Auto) 16.5 H 1.8-7.8 X 10^3 Lymphocytes # (Auto) 1.6 1.0-4.0 X 10^3 Monocytes # (Auto) 1.6 H 0.0-1.0 X 10^3 Eosinophils # (Auto) 0.0 0.0-0.3 10^3/uL Basophils # (Auto) 0.0 0.0-0.1 10^3/uL Neutrophils % (Manual) 82 % Lymphocytes % (Manual) 12 % Monocytes % (Manual) 6 % Blood Morphology Comment NORMAL Prothrombin Time 13.1 12.2-14.7 SEC INR Comment 1.0 0.8-1.4 Activated Partial Thromboplast Time 28 24-35 SEC Sodium Level 139 135-145 MMOL/L Potassium Level 5.6 H 3.6-5.0 MMOL/L Chloride Level 107 98-107 MMOL/L Carbon Dioxide Level 20 L 21-32 MMOL/L Anion Gap 12 5-14 MMOL/L Blood Urea Nitrogen 25 H 7-18 MG/DL Creatinine 1.24 0.60-1.30 MG/DL Estimat Glomerular Filtration Rate 47 BUN/Creatinine Ratio 20 Glucose Level 96 70-105 MG/DL Lactic Acid Level 1.89 0.50-2.00 MMOL/L Calcium Level 8.6 8.5-10.1 MG/DL Corrected Calcium 8.5 8.5-10.1 MG/DL Total Bilirubin 0.6 0.1-1.0 MG/DL Aspartate Amino Transf (AST/SGOT) 616 H 5-34 U/L Alanine Aminotransferase (ALT/SGPT) 851 H 0-55 U/L Alkaline Phosphatase 288 H 40-136 U/L C-Reactive Protein High Sensitivity 2.71 H 0.00-0.50 MG/DL Total Protein 6.8 6.4-8.2 GM/DL Albumin 4.1 3.2-4.5 GM/DL Salicylates Level < 5.0 L 5.0-20.0 MG/DL Acetaminophen Level < 10 L 10-30 UG/ML Serum Alcohol < 10 <10 MG/DL Blood Gas Puncture Site RIGHT RADIAL Blood Gas Patient Temperature 99.2 Arterial Blood pH 7.30 *L 7.37-7.43 Arterial Blood Partial Pressure CO2 49 H 35-45 MMHG Arterial Blood Partial Pressure O2 72 L 79-93 MMHG Arterial Blood HCO3 23 23-27 MMOL/L Arterial Blood Total CO2 24.5 21.0-31.0 MMOL/L Arterial Blood Oxygen Saturation 94 94-100 % Arterial Blood Base Excess -2.4 -2.5-2.5 MMOL/L Wally Test POSITIVE Blood Gas Ventilator Setting NO Blood Gas Inspired Oxygen 2 L Urine Color YELLOW Urine Clarity VERY CLOUDY H Urine pH 5 5-9 Urine Specific [place] 1.025 H 1.016-1.022 Urine Protein 2+ H NEGATIVE Urine Glucose (UA) 2+ H NEGATIVE Urine Ketones NEGATIVE NEGATIVE Urine Nitrite NEGATIVE NEGATIVE Urine Bilirubin NEGATIVE NEGATIVE Urine Urobilinogen 1 NORMAL MG/DL Urine Leukocyte Esterase NEGATIVE NEGATIVE Urine RBC (Auto) 5+ H NEGATIVE Urine RBC 2-5 H /HPF Urine WBC NONE /HPF Urine Squamous Epithelial Cells 0-2 /HPF Urine Crystals PRESENT H /LPF Urine Amorphous Sediment MOD JANNETTE URATES H /LPF Urine Bacteria TRACE /HPF Urine Casts NONE /LPF Urine Mucus NEGATIVE /LPF Urine Culture Indicated CULTURE PENDING Urine Opiates Screen POSITIVE H NEGATIVE Urine Oxycodone Screen POSITIVE H NEGATIVE Urine Methadone Screen NEGATIVE NEGATIVE Urine Propoxyphene Screen NEGATIVE NEGATIVE Urine Barbiturates Screen NEGATIVE NEGATIVE Ur Tricyclic Antidepressants Screen NEGATIVE NEGATIVE Urine Phencyclidine Screen NEGATIVE NEGATIVE Urine Amphetamines Screen NEGATIVE NEGATIVE Urine Methamphetamines Screen NEGATIVE NEGATIVE Urine Benzodiazepines Screen NEGATIVE NEGATIVE Urine Cocaine Screen NEGATIVE NEGATIVE Urine Cannabinoids Screen NEGATIVE NEGATIVE Radiology NAME: MRYNA MA [facility] REC#: [id number] PT STATUS: REG ER : 1975 PHYSICIAN: MERRICK DUEÑAS MD ADMIT DATE: 12/11/18/ER Draft Date of Exam:12/11/18 CHEST 1 VIEW, AP/PA ONLY EXAMINATION: Portable erect AP chest at 01:47 p.m. INDICATION: Weakness. FINDINGS: The heart is mildly enlarged and the heart and the central pulmonary vascularity do seem more prominent than on the prior exam of 11/25/2015. However, there is no evidence for overt failure. Even so, there could be an element of early pulmonary congestion. In addition, a vague area of increased density has developed in the right mid lung. This finding is worrisome for pneumonia/atelectasis. There is no significant pleural effusion identified. The mediastinum is not widened. The osseous structures are intact. IMPRESSION: Both the heart and the central pulmonary vascularity do seem more prominent than on the prior exam, but there is no evidence for overt failure. There does seem to be a new area of pneumonia/atelectasis in the right mid lung, however. A follow-up study will be recommended for continued evaluation. Dictated on workstation # [id number] Dict: 12/11/18 1442 Trans: 12/11/18 1451 [id number] Interpreted by: MARLIN LAGUNAS MD Electronically signed by: Physical Exam-(CHC) Physical Exam Vital Signs VS - Last 72 Hours, by Label 12/11/18 12/11/18 12/11/18 12/11/18 13:13 13:42 16:35 16:50 Temp 99.2 98.4 Pulse 110 93 Resp 16 20 B/P (MAP) 118/74 (89) 119/85 (96) Pulse Ox 94 93 100 O2 Delivery Nasal Cannula Nasal Cannula Room Air Nasal Cannula O2 Flow Rate 2.00 2.00 2.00 12/11/18 12/11/18 12/11/18 12/11/18 17:01 17:26 19:15 20:00 Temp 99.2 Pulse 93 93 Resp 20 B/P (MAP) 113/85 Pulse Ox 93 94 O2 Delivery Nasal Cannula Nasal Cannula Nasal Cannula O2 Flow Rate 2.00 2.00 2.00 FiO2 28 12/11/18 12/11/18 12/12/18 12/12/18 20:10 23:58 01:30 03:29 Temp 99.8 99.4 98.7 Pulse 92 88 84 Resp 18 16 20 B/P (MAP) 116/79 (91) 122/79 (93) 136/80 (98) Pulse Ox 96 98 95 97 O2 Delivery Nasal Cannula Nasal Cannula Nasal Cannula Nasal Cannula O2 Flow Rate 2.00 2.00 2.00 2.00 12/12/18 12/12/18 12/12/18 12/12/18 07:49 09:00 10:29 12:00 Temp 99.4 98.3 Pulse 89 91 Resp 20 20 B/P (MAP) 137/91 (106) 138/89 (105) Pulse Ox 97 95 97 O2 Delivery Nasal Cannula Nasal Cannula Nasal Cannula Nasal Cannula O2 Flow Rate 2.00 2.00 2.00 2.00 12/12/18 12/12/18 12/12/18 12/12/18 14:02 16:00 18:34 20:42 Temp 99.1 Pulse 92 Resp 22 B/P (MAP) 141/89 (106) Pulse Ox 95 95 97 O2 Delivery Nasal Cannula Nasal Cannula Room Air Room Air O2 Flow Rate 2.00 2.00 12/12/18 12/12/18 12/13/18 12/13/18 21:13 23:31 01:05 07:23 Temp 98.5 Pulse 89 Resp 20 B/P (MAP) 144/80 (101) Pulse Ox 97 97 94 97 O2 Delivery Room Air Room Air Room Air Room Air Capillary Refill : Less Than 3 Seconds General Appearance: no apparent distress (and is slow in her conversation) Eyes: Bilateral Eye Normal Inspection Neck: supple Respiratory: lungs clear, rales (in right mid chest) Cardiovascular: regular rate, rhythm Gastrointestinal: soft Rectal: deferred Extremities: normal range of motion Neurologic/Psychiatric: alert Skin: normal color Assessment/Plan Assessment/Plan Admission Dx 1. Altered mental status 2. Sepsis 3. R Mid lung pneumonia 4. Elevated LFTs 5. Opioid usage Admission Status: Inpatient Order (span 2 midnights) Reason for Inpatient Admission: Admited for IVFs and IV antibiotics. Monitor mental status Assessment & Plan 1. Altered mental status -Monitor VS closely 2. Sepsis -patient initiated on Zosyn -IVFs 3. R Mid lung pneumonia -Zosyn 4. Elevated LFTs -She claims hx/o workup in past by Dr Gee and informed she has fatty liver. -check levels in the am 5. Opioid usage Clinical Quality Measures DVT/VTE Risk/Contraindication: Risk Factor Score Per Nursin RFS Level Per Nursing on Admit: 3=High SERGIO CHAMBERS MD Dec 11, 2018 21:51
[2018-12-11 23:58] VITALS: BP 122/79
[2018-12-12] MEDS: RT-ALBUTEROL/IPRATROPIUM 3 ML (DUONEB) VIAL INH SCH ×6 (01:30→21:13)
[2018-12-12] MEDS: NS IV 1000 ML 1,000 ML IV SCH ×2 (01:34→09:00)
[2018-12-12 03:29] VITALS: BP 136/80
[2018-12-12 06:13] LABS: BASOPHILS % (AUTO) 0 % (0-10); EOSINOPHILS % (AUTO) 0 % (0-10); HEMATOCRIT 39 % (35-52); HEMOGLOBIN 12.9 G/DL (11.5-16.0); LYMPHOCYTES # (AUTO) 1.7 X 10^3 (1.0-4.0); LYMPHOCYTES % (AUTO) 10 % (12-44); MEAN CORPUSCULAR HEMOGLOBIN 31 PG (25-34); MEAN CORPUSCULAR HGB CONC 33 G/DL (32-36); MEAN CORPUSCULAR VOLUME 94 FL (80-99); MEAN PLATELET VOLUME 10.4 FL (7.4-10.4); MONOCYTES % (AUTO) 5 % (0-12); NEUTROPHILS # (AUTO) 14.8 X 10^3 (1.8-7.8); NEUTROPHILS % (AUTO) 85 % (42-75); PLATELET COUNT 229 10^3/uL (130-400); WHITE BLOOD COUNT 17.4 10^3/uL (4.3-11.0)
[2018-12-12 06:41] LABS: ALANINE AMINOTRANSFERASE 905 U/L (0-55); ALBUMIN 3.5 GM/DL (3.2-4.5); ALKALINE PHOSPHATASE 227 U/L (40-136); BILIRUBIN,TOTAL 0.5 MG/DL (0.1-1.0); BUN/CREATININE RATIO 31; CALCIUM 8.6 MG/DL (8.5-10.1); CARBON DIOXIDE 21 MMOL/L (21-32); CHLORIDE 110 MMOL/L (98-107); CREATININE SERUM 0.83 MG/DL (0.60-1.30); GFR ESTIMATED > 60; GLUCOSE 112 MG/DL (70-105); POTASSIUM 4.2 MMOL/L (3.6-5.0); SODIUM 140 MMOL/L (135-145); TOTAL PROTEIN 6.1 GM/DL (6.4-8.2)
[2018-12-12] MEDS ORDERED: FLU QUADRIvalent (5+ YOA) 2018-2019 (AFLURIA) 0.5 ML IM ONE (07:15)
[2018-12-12 07:49] VITALS: BP 137/91
--- NOTE | 2018-12-12 09:10 | Progress Note (SOAP) ---
Subjective Subjective/Events-last exam Patient communicating well this morning but just talks very soft. She denies any pain. She is noted to be with an occasional cough during conversation. She has taken some oral liquids. Review of Systems Date Seen by Provider: Dec 12, 2018 Time Seen by Provider: 07:25 Focused Exam Lactate Level 12/11/18 13:29: Lactic Acid Level 1.89 Objective Exam Last Set of Vital Signs Vital Signs Date Time Temp Pulse Resp B/P (MAP) Pulse Ox O2 Delivery O2 Flow Rate FiO2 12/12/18 07:49 99.4 89 20 137/91 (106) 97 Nasal Cannula 2.00 12/11/18 17:26 28 Capillary Refill : Less Than 3 Seconds I&O Intake and Output 12/12/18 00:00 Intake Total 700 ml Output Total 700 ml Balance 0 ml Intake Oral 500 ml IV Total 200 ml Output Urine Total 700 ml Daily Weight Change No No General: No Acute Distress Lungs: Other (Coarseness noted on right) Heart: Regular Rate, No Murmurs Abdomen: Normal Bowel Sounds, Soft Skin: No Rashes Psych/Mental Status: Mental Status NL Results/Procedures Lab Laboratory Tests 12/11/18 13:29: White Blood Count 19.7H, Red Blood Count 4.23L, Hemoglobin 13.2, Hematocrit 41, Mean Corpuscular Volume 96, Mean Corpuscular Hemoglobin 31, Mean Corpuscular Hemoglobin Concent 33, Red Cell Distribution Width 14.2, Platelet Count 271, Mean Platelet Volume 10.3, Neutrophils (%) (Auto) 84H, Lymphocytes (%) (Auto) 8L , Monocytes (%) (Auto) 8, Eosinophils (%) (Auto) 0, Basophils (%) (Auto) 0, Neutrophils # (Auto) 16.5H, Lymphocytes # (Auto) 1.6, Monocytes # (Auto) 1.6H, Eosinophils # (Auto) 0.0, Basophils # (Auto) 0.0, Neutrophils % (Manual) 82, Lymphocytes % (Manual) 12, Monocytes % (Manual) 6, Blood Morphology Comment NORMAL, Prothrombin Time 13.1, INR Comment 1.0, Activated Partial Thromboplast Time 28, Sodium Level 139, Potassium Level 5.6H, Chloride Level 107, Carbon Dioxide Level 20L, Anion Gap 12, Blood Urea Nitrogen 25H, Creatinine 1.24, Estimat Glomerular Filtration Rate 47, BUN/Creatinine Ratio 20, Glucose Level 96 , Lactic Acid Level 1.89, Calcium Level 8.6, Corrected Calcium 8.5, Total Bilirubin 0.6, Aspartate Amino Transf (AST/SGOT) 616H, Alanine Aminotransferase (ALT/SGPT) 851H, Alkaline Phosphatase 288H, C-Reactive Protein High Sensitivity 2.71H, Total Protein 6.8, Albumin 4.1, Salicylates Level < 5.0L, Acetaminophen Level < 10L, Serum Alcohol < 10 12/11/18 13:35: Blood Gas Puncture Site RIGHT RADIAL, Blood Gas Patient Temperature 99.2, Arterial Blood pH 7.30*L, Arterial Blood Partial Pressure CO2 49H, Arterial Blood Partial Pressure O2 72L, Arterial Blood HCO3 23, Arterial Blood Total CO2 24.5, Arterial Blood Oxygen Saturation 94, Arterial Blood Base Excess -2.4, Wally Test POSITIVE, Blood Gas Ventilator Setting NO, Blood Gas Inspired Oxygen 2 L 12/11/18 14:20: Urine Color YELLOW, Urine Clarity VERY CLOUDYH, Urine pH 5, Urine Specific [place] 1.025H, Urine Protein 2+H, Urine Glucose (UA) 2+H, Urine Ketones NEGATIVE, Urine Nitrite NEGATIVE, Urine Bilirubin NEGATIVE, Urine Urobilinogen 1 , Urine Leukocyte Esterase NEGATIVE, Urine RBC (Auto) 5+H, Urine RBC 2-5H, Urine WBC NONE, Urine Squamous Epithelial Cells 0-2, Urine Crystals PRESENTH, Urine Amorphous Sediment MOD JANNETTE URATESH, Urine Bacteria TRACE, Urine Casts NONE, Urine Mucus NEGATIVE, Urine Culture Indicated CULTURE PENDING, Urine Opiates Screen POSITIVEH, Urine Oxycodone Screen POSITIVEH, Urine Methadone Screen NEGATIVE, Urine Propoxyphene Screen NEGATIVE, Urine Barbiturates Screen NEGATIVE, Ur Tricyclic Antidepressants Screen NEGATIVE, Urine Phencyclidine Screen NEGATIVE, Urine Amphetamines Screen NEGATIVE, Urine Methamphetamines Screen NEGATIVE, Urine Benzodiazepines Screen NEGATIVE, Urine Cocaine Screen NEGATIVE, Urine Cannabinoids Screen NEGATIVE 12/12/18 05:45: White Blood Count 17.4H, Red Blood Count 4.15L, Hemoglobin 12.9, Hematocrit 39, Mean Corpuscular Volume 94, Mean Corpuscular Hemoglobin 31, Mean Corpuscular Hemoglobin Concent 33, Red Cell Distribution Width 14.0, Platelet Count 229, Mean Platelet Volume 10.4, Neutrophils (%) (Auto) 85H, Lymphocytes (%) (Auto) 10L, Monocytes (%) (Auto) 5, Eosinophils (%) (Auto) 0, Basophils (%) (Auto) 0, Neutrophils # (Auto) 14.8H, Lymphocytes # (Auto) 1.7, Monocytes # (Auto) 1.0, Eosinophils # (Auto) 0.0, Basophils # (Auto) 0.0, Sodium Level 140, Potassium Level 4.2, Chloride Level 110H, Carbon Dioxide Level 21, Anion Gap 9, Blood Urea Nitrogen 26H, Creatinine 0.83, Estimat Glomerular Filtration Rate > 60, BUN /Creatinine Ratio 31, Glucose Level 112H, Calcium Level 8.6, Corrected Calcium 9.0, Total Bilirubin 0.5, Aspartate Amino Transf (AST/SGOT) 618H, Alanine Aminotransferase (ALT/SGPT) 905#H, Alkaline Phosphatase 227H, Total Protein 6.1L , Albumin 3.5 Microbiology 12/11/18 Influenza Types A,B Antigen (SUSANNA) - Final, Complete Radiology NAME: MYRNA MA [facility] REC#: [id number] PT STATUS: REG ER : 1975 PHYSICIAN: MERRICK DUEÑAS MD ADMIT DATE: 12/11/18/ER Draft Date of Exam:12/11/18 CHEST 1 VIEW, AP/PA ONLY EXAMINATION: Portable erect AP chest at 01:47 p.m. INDICATION: Weakness. FINDINGS: The heart is mildly enlarged and the heart and the central pulmonary vascularity do seem more prominent than on the prior exam of 11/25/2015. However, there is no evidence for overt failure. Even so, there could be an element of early pulmonary congestion. In addition, a vague area of increased density has developed in the right mid lung. This finding is worrisome for pneumonia/atelectasis. There is no significant pleural effusion identified. The mediastinum is not widened. The osseous structures are intact. IMPRESSION: Both the heart and the central pulmonary vascularity do seem more prominent than on the prior exam, but there is no evidence for overt failure. There does seem to be a new area of pneumonia/atelectasis in the right mid lung, however. A follow-up study will be recommended for continued evaluation. Dictated on workstation # [id number] Dict: 12/11/18 1442 Trans: 12/11/18 1451 [id number] Interpreted by: MARLIN LAGUNAS MD Electronically signed by: Assessment/Plan Assessment/Plan Assessment & Plan 1. Altered mental status -Monitor VS closely 12/12 -Improvement noted 2. Sepsis -patient initiated on Zosyn -IVFs 12/12 -May decrease fluids to 80 mL per hour -Day number 2 of Zosyn 3. R Mid lung pneumonia -Zosyn 12/12 -Check chest x-ray specifically on the right mid lung 4. Elevated LFTs -She claims hx/o workup in past by Dr Gee and informed she has fatty liver. -check levels in the am 12/12 -Liver enzymes remain elevated. She has had apparently this worked up in the past by gastroenterology. She reports she has had negative viral titers. She also admits to fatty liver -Check liver enzymes in the morning of December 13 5. Opioid usage Clinical Quality Measures DVT/VTE Risk/Contraindication: Risk Factor Score Per Nursin RFS Level Per Nursing on Admit: 3=High FAIZA CHAMBERS MD Dec 12, 2018 09:10
--- NOTE | 2018-12-12 11:22 | Diagnostic Imaging Report ---
INDICATION: Cough. TECHNIQUE: Two view chest 10:06 AM CORRELATION STUDY: 12/11/2018 FINDINGS: Heart size and mediastinum are stable. Vasculature appears improved and relatively normal at followup. There is new infiltrate or atelectasis at the right lung base. No significant effusion. Mild anteriorly wedged lower thoracic vertebral body. IMPRESSION: 1. New area of infiltrate or atelectasis at the right lung base. Dictated by: Dictated on workstation # [id number]
[2018-12-12 12:00] VITALS: BP 138/89
[2018-12-12] MEDS ORDERED: LIDOCAINE 1% INJ 20 ML 20 ML VIAL INJ NR (14:45)
[2018-12-12] MEDS ORDERED: cefTRIAXone 1,000 MG IV (ROCEPHIN) VIAL IJ NR (14:45)
[2018-12-12 16:00] VITALS: BP 141/89
[2018-12-12] MEDS ORDERED: CARVEDILOL 12.5 MG (COREG) TABLET ONE (23:01)
[2018-12-12] MEDS ORDERED: CARVEDILOL 6.25 MG (COREG) TAB ONE (23:06)
[2018-12-12] MEDS: CARVEDILOL 6.25 MG (COREG) TAB PO SCH (23:08)
[2018-12-12 23:31] VITALS: BP 144/80
[2018-12-13] MEDS: RT-ALBUTEROL/IPRATROPIUM 3 ML (DUONEB) VIAL INH SCH ×2 (01:05→07:23)
[2018-12-13 05:35] LABS: BASOPHILS % (AUTO) 0 % (0-10); EOSINOPHILS % (AUTO) 0 % (0-10); HEMATOCRIT 36 % (35-52); HEMOGLOBIN 11.9 G/DL (11.5-16.0); LYMPHOCYTES # (AUTO) 2.1 X 10^3 (1.0-4.0); LYMPHOCYTES % (AUTO) 14 % (12-44); MEAN CORPUSCULAR HEMOGLOBIN 31 PG (25-34); MEAN CORPUSCULAR HGB CONC 33 G/DL (32-36); MEAN CORPUSCULAR VOLUME 93 FL (80-99); MEAN PLATELET VOLUME 10.9 FL (7.4-10.4); MONOCYTES # (AUTO) 1.1 X 10^3 (0.0-1.0); MONOCYTES % (AUTO) 7 % (0-12); NEUTROPHILS % (AUTO) 79 % (42-75); PLATELET COUNT 209 10^3/uL (130-400); RED CELL DISTRIBUTION WIDTH 13.2 % (10.0-14.5); WHITE BLOOD COUNT 15.2 10^3/uL (4.3-11.0)
[2018-12-13 06:07] LABS: ALANINE AMINOTRANSFERASE 995 U/L (0-55); ALBUMIN 3.4 GM/DL (3.2-4.5); ALKALINE PHOSPHATASE 184 U/L (40-136); BILIRUBIN,TOTAL 0.5 MG/DL (0.1-1.0); BUN/CREATININE RATIO 26; CALCIUM 8.6 MG/DL (8.5-10.1); CARBON DIOXIDE 22 MMOL/L (21-32); CHLORIDE 111 MMOL/L (98-107); CREATININE SERUM 0.73 MG/DL (0.60-1.30); GFR ESTIMATED > 60; GLUCOSE 107 MG/DL (70-105); POTASSIUM 3.4 MMOL/L (3.6-5.0); SODIUM 144 MMOL/L (135-145); TOTAL PROTEIN 5.7 GM/DL (6.4-8.2)
[2018-12-13 08:00] VITALS: BP 144/89
[2018-12-13] MEDS: CARVEDILOL 6.25 MG (COREG) TAB PO SCH (08:26)
[2018-12-13] MEDS ORDERED: cefTRIAXone FOR IV USE 1,000 MG in WATER (STERILE) FOR INJECTION 10 ML IV SCH ×2 (09:15→09:34)
[2018-12-13] MEDS ORDERED: CEFD300C3 PO (09:42)
--- NOTE | 2018-12-13 09:44 | Discharge Summary-Hospitalist ---
Diagnosis/Chief Complaint Date of Admission Dec 11, 2018 at 16:08 Date of Discharge Discharge Date: Dec 13, 2018 Discharge Summary Discharge Physical Exam Allergies: Coded Allergies: prochlorperazine (Unverified Allergy, Mild, RASH, 08/07/06) codeine (Unverified Allergy, Unknown, PATIENT HAS RECEIVED MORPHINE & HYDROCODONE, 06/02/15) propoxyphene (Unverified Adverse Reaction, Mild, NAUSEA, 01/25/08) Vitals & I&Os Vital Signs Date Time Temp Pulse Resp B/P (MAP) Pulse Ox O2 Delivery O2 Flow Rate FiO2 12/13/18 10:56 12/13/18 08:00 98.3 84 18 97 Room Air 12/12/18 16:00 2.00 12/11/18 17:26 28 General Appearance: No Apparent Distress, WD/WN, Chronically ill Respiratory: Chest Non Tender, Lungs Clear, Normal Breath Sounds, No Accessory Muscle Use, No Respiratory Distress Neurologic/Psychiatric: Alert, Oriented x3, No Motor/Sensory Deficits, Normal Mood/Affect Hospital Course Was the Problem List Reviewed?: Yes Pt feels well Elevated liver enzymes have been worked up with ERCP by Dr. Byrne Restarted on all home medication list. Hospital course: Pt had an uneventful hospital course. She was placed on antibiotics for pneumonia and felt like she was dehydrated and had a near sinkable episode at work at which she works in [employer] in [place]. Pt was deemed stable for DC and will have a close follow-up with [facility]. Although her elevated liver enzymes are concerning they are back to baseline. Labs (last 24 hrs) Laboratory Tests 12/13/18 05:10: White Blood Count 15.2H, Red Blood Count 3.85L, Hemoglobin 11.9, Hematocrit 36, Mean Corpuscular Volume 93, Mean Corpuscular Hemoglobin 31, Mean Corpuscular Hemoglobin Concent 33, Red Cell Distribution Width 13.2, Platelet Count 209, Mean Platelet Volume 10.9H, Neutrophils (%) (Auto) 79H, Lymphocytes (%) (Auto) 14, Monocytes (%) (Auto) 7, Eosinophils (%) (Auto) 0, Basophils (%) (Auto) 0, Neutrophils # (Auto) 12.0H, Lymphocytes # (Auto) 2.1, Monocytes # (Auto) 1.1H, Eosinophils # (Auto) 0.0, Basophils # (Auto) 0.0, Sodium Level 144, Potassium Level 3.4L, Chloride Level 111H, Carbon Dioxide Level 22, Anion Gap 11, Blood Urea Nitrogen 19H, Creatinine 0.73, Estimat Glomerular Filtration Rate > 60, BUN /Creatinine Ratio 26, Glucose Level 107H, Calcium Level 8.6, Corrected Calcium 9.1, Total Bilirubin 0.5, Aspartate Amino Transf (AST/SGOT) 556H, Alanine Aminotransferase (ALT/SGPT) 995#H, Alkaline Phosphatase 184H, Total Protein 5.7L , Albumin 3.4 Microbiology 12/11/18 Blood Culture - Preliminary, Resulted No growth 12/11/18 Influenza Types A,B Antigen (SUSANNA) - Final, Complete 12/11/18 Urine Culture - Final, Complete 3 or more isolates Patient resulted labs reviewed. Pending Labs Discussion & Recommendations Discharge Planning: <30 minutes discharge planning Discharge Home Medications: Active Scripts Active Cefdinir 300 Mg Capsule 300 Mg PO BID Ultram (Tramadol HCl) 50 Mg Tablet 50 Mg PO TID PRN Do not take with your sumatriptan Tramadol HCl 50 Mg Tablet 50 Mg PO Q6H PRN Albuterol Sulfate 2.5 Mg/3 Ml Vial.neb 2.5 Mg IH Q4H PRN Reported Sumatriptan Succinate 100 Mg Tablet 100 Mg PO PRN Carvedilol 6.25 Mg Tablet 12.5 Mg PO BID Clonidine HCl 0.1 Mg Tablet 0.1 Mg PO DAILY Lisinopril 10 Mg Tablet 10 Mg PO DAILY Seroquel (Quetiapine Fumarate) 300 Mg Tablet 300 Mg PO HS HAS NOT STARTED YET Instructions to patient/family Please see electronic discharge instructions given to patient. Clinical Quality Measures DVT/VTE Risk/Contraindication: Risk Factor Score Per Nursin RFS Level Per Nursing on Admit: 3=High ARTI LONG DO Dec 13, 2018 09:44
[2018-12-13] MEDS ORDERED: QUEtiapine 100 MG (SEROquel) TAB IMMEDIATE RELEASE PO SCH (21:00)
[2018-12-13] MEDS ORDERED: QUEtiapine 200 MG (SEROquel) TAB IMMEDIATE RELEASE PO SCH (21:00)
[2018-12-14] MEDS ORDERED: lisINopril 10 MG (PRINIVIL) TABLET PO SCH (09:00)
[2018-12-14] MEDS ORDERED: cloNIDine 0.1 MG (CATAPRES) TAB PO SCH (09:00)
== END 2018-12-13 10:56 | disposition home or self-care (01) | DRG 871 ==
LOC: EDUNIT# 13:13 → ER 13:14 → 4TH 16:08
PROVIDERS: ADMIT Family Medicine; ATTEND Family Medicine
DX: A41.9 Sepsis, unspecified organism (principal); J18.1 Lobar pneumonia, unspecified organism; F17.210 Nicotine dependence, cigarettes, uncomplicated; F11.90 Opioid use, unspecified, uncomplicated; R40.0 Somnolence; R09.02 Hypoxemia; I10 Essential (primary) hypertension; E03.9 Hypothyroidism, unspecified; F40.01 Agoraphobia with panic disorder; F31.9 Bipolar disorder, unspecified; R79.89 Other specified abnormal findings of blood chemistry; M54.9 Dorsalgia, unspecified; G89.29 Other chronic pain
CPT/HCPCS: 36415; 51702; 71045; 71046; 80053; 80306; 80320; 80329; 81000; 82805; 83605; 85007; 85025; 85027; 85610; 85730; 86141; 87040; 87088; 87804; 94640; 94760; 96374